=== PATIENT | male | born 1950 | race African-American/Black ===

== ENCOUNTER 2019-02-20 12:14 | Inpatient (IN) | payer MEDICARE, MEDICAID ==
[~2019-02-20] VITALS: Ht 182.9 cm; Wt 86.2 kg
[2019-02-20] MEDS ORDERED: IPRATROPIUM BROMIDE (0.02%) 0.5MG/2.5ML NEB HHN STA (12:41)
[2019-02-20] MEDS ORDERED: ALBUTEROL (0.083%) 2.5MG/3ML NEB HHN STA (12:41)
[2019-02-20] MEDS ORDERED: METHYLPREDNISOLONE SOD SUCC 125 MG/2 ML VIAL IV STA (12:41)
[2019-02-20] MEDS ORDERED: FUROSEMIDE 100MG/10ML VIAL IVP ONE (12:45)
[2019-02-20] MEDS ORDERED: ASPIRIN 81MG TABLET PO ONE (12:45)
[2019-02-20] MEDS ORDERED: VANCOMYCIN 1 G PREMIX 200 ML IV ONE (13:00)
[2019-02-20] MEDS ORDERED: PIPERACILLIN/TAZ 3.375G PREMIX 50 ML IV ONE (13:00)
[2019-02-20 13:20] LABS: HEMOGLOBIN. 11.4 g/dL (14.0-18.0); MEAN CORPUSCULAR HEMOGLOBIN 24.6 pg (28.0-32.0); MEAN CORPUSCULAR VOLUME 77.4 fL (80.0-94.0); MEAN PLATELET VOLUME 9.1 fl (7.4-10.4); PLATELET 82 x1000/uL (130-400); RED BLOOD CELL COUNT 4.65 mill/uL (4.7-6.1); RED CELL DISTRIBUTION WIDTH 18.7 % (11.6-14.6)
[2019-02-20 13:28] LABS: CHLORIDE 109 mEq/L (98-107)
[2019-02-20 13:45] LABS: INR 1.4; PROTHROMBIN TIME 14.1 sec (9.6-11.0)
[2019-02-20 14:03] LABS: PLATELET ESTIMATE SLIGHTLY DECREASED
[2019-02-20] MEDS ORDERED: GUAIFENESIN 200MG/10ML SUGAR FREE UDC PO PRN (14:30)
[2019-02-20] MEDS ORDERED: ONDANSETRON HCL 4MG/2ML INJ IV PRN (14:30)
[2019-02-20] MEDS ORDERED: CLONIDINE 0.1MG TABLET PO PRN (14:30)
[2019-02-20] MEDS ORDERED: DOCUSATE SODIUM 100MG CAPSULE PO PRN (14:30)
[2019-02-20] MEDS ORDERED: ENOXAPARIN 40MG/0.4ML SYR SUBCUT SCH (14:30)
[2019-02-20] MEDS ORDERED: ACETAMINOPHEN 325MG TABLET PO PRN (14:30)
[2019-02-20] MEDS ORDERED: HYDROCODONE/ACETAMINOPHEN 5/325MG TABLET PO PRN (14:30)
[2019-02-20] MEDS ORDERED: NA PHOS,M-B/NA PHOS,DI-BA ENEMA 118ML PR PRN (14:30)
[2019-02-20] MEDS ORDERED: IPRATROPIUM/ALBUTEROL 0.5-3(2.5)MG/3ML NEB INH PRN (14:30)
[2019-02-20 18:46] VITALS: BP 138/81
[2019-02-20 20:00] VITALS: BP 130/94
[2019-02-20] MEDS ORDERED: LEVOFLOXACIN 500MG PREMIX 100 ML IV SCH (21:00)
[2019-02-20] MEDS: METHYLPREDNISOLONE SOD SUCC 125 MG/2 ML VIAL IV SCH (22:56)
[2019-02-20] MEDS ORDERED: ASPI-1158 PO (23:25)
[2019-02-20] MEDS ORDERED: ACYC200C PO (23:25)
[2019-02-20] MEDS ORDERED: FURO-151 PO (23:25)
[2019-02-20] MEDS ORDERED: LISI10TA5 PO (23:25)
[2019-02-20] MEDS ORDERED: COR3 PO (23:25)
[2019-02-21] VITALS: BP 131/86
[2019-02-21 04:00] VITALS: BP_SYST 156; BP_SYST 177; BP_DIAS 116; BP_DIAS 89
[2019-02-21 04:02] LABS: CREATINE KINASE 375 IU/L (39-308)
[2019-02-21] MEDS: METHYLPREDNISOLONE SOD SUCC 125 MG/2 ML VIAL IV SCH ×4 (04:28→22:08)
[2019-02-21] MEDS: IPRATROPIUM/ALBUTEROL 0.5-3(2.5)MG/3ML NEB INH SCH ×4 (04:39→19:58)
[2019-02-21 08:00] VITALS: BP 173/110
[2019-02-21] MEDS ORDERED: FUROSEMIDE 40MG/4ML VIAL IV SCH (09:00)
[2019-02-21] MEDS: LISINOPRIL 10MG TABLET PO SCH (09:12)
[2019-02-21] MEDS ORDERED: AMLODIPINE 5MG TABLET PO ONE (10:45)
[2019-02-21 12:00] VITALS: BP 152/102
[2019-02-21 12:01] LABS: BASOPHILS % 0.2 % (0.0-2.0); EOSINOPHILS % 0.1 % (0.0-5.0); HEMATOCRIT. 37.5 % (42.0-52.0); HEMOGLOBIN. 11.8 g/dL (14.0-18.0); LYMPHOCYTES % 13.6 % (20.0-50.0); MEAN CORPUSCULAR HEMOGLOBIN 24.6 pg (28.0-32.0); MEAN PLATELET VOLUME 10.2 fl (7.4-10.4); MONOCYTES % 5.8 % (2.0-8.0); NEUTROPHILS % 80.3 % (40.0-76.0); PLATELET 98 x1000/uL (130-400); RED BLOOD CELL COUNT 4.81 mill/uL (4.7-6.1); RED CELL DISTRIBUTION WIDTH 19.3 % (11.6-14.6)
[2019-02-21 12:13] LABS: CHLORIDE 104 mEq/L (98-107)
[2019-02-21 12:22] LABS: LDL CHOLESTEROL 54 mg/dL (5-100)
[2019-02-21 12:23] LABS: CREATINE KINASE 386 IU/L (39-308)
[2019-02-21 12:24] LABS: HDL CHOLESTEROL 51 mg/dL (40-59)
[2019-02-21 16:00] VITALS: BP 138/98
[2019-02-21] MEDS ORDERED: AMLODIPINE 5MG TABLET PO NR (16:00)
[2019-02-21 20:00] VITALS: BP 144/106
[2019-02-21] MEDS: FUROSEMIDE 100MG/10ML VIAL IVP SCH (22:08)
[2019-02-21] MEDS: LEVOFLOXACIN 500MG PREMIX 100 ML IV SCH (22:08)
[2019-02-21] MEDS ORDERED: CLONIDINE 0.1MG TABLET PO PRN (22:15)
[2019-02-21] MEDS ORDERED: ACETAMINOPHEN 325MG TABLET PO PRN (22:15)
[2019-02-21] MEDS ORDERED: ONDANSETRON HCL 4MG/2ML INJ IV PRN (22:15)
[2019-02-21] MEDS ORDERED: IPRATROPIUM BROMIDE (0.02%) 0.5MG/2.5ML NEB HHN PRN (22:15)
[2019-02-22] VITALS (7 sets, daily range): BP systolic 130–161; BP diastolic 84–111
[2019-02-22] MEDS: IPRATROPIUM/ALBUTEROL 0.5-3(2.5)MG/3ML NEB INH SCH ×4 (01:58→21:30)
[2019-02-22] MEDS: METHYLPREDNISOLONE SOD SUCC 125 MG/2 ML VIAL IV SCH ×4 (04:53→21:09)
[2019-02-22 07:23] LABS: HEMATOCRIT. 37.9 % (42.0-52.0); HEMOGLOBIN. 11.9 g/dL (14.0-18.0); MEAN CORPUSCULAR HEMOGLOBIN 24.7 pg (28.0-32.0); MEAN CORPUSCULAR VOLUME 78.4 fL (80.0-94.0); PLATELET 104 x1000/uL (130-400); RED BLOOD CELL COUNT 4.84 mill/uL (4.7-6.1)
[2019-02-22 07:30] LABS: CHLORIDE 105 mEq/L (98-107)
[2019-02-22] MEDS ORDERED: BLOOD SUGAR DIAGNOSTIC STRIP TEST SCH (07:40)
[2019-02-22] MEDS ORDERED: INSULIN LISPRO 100 UNITS/ML SUBCUT SCH (08:10)
[2019-02-22] MEDS: LISINOPRIL 10MG TABLET PO SCH (09:02)
[2019-02-22] MEDS: AMLODIPINE 5MG TABLET PO SCH (09:02)
[2019-02-22] MEDS: FUROSEMIDE 100MG/10ML VIAL IVP SCH ×3 (09:02→21:10)
[2019-02-22] MEDS ORDERED: INSULIN GLARGINE UD 100 UNITS/ML SYR SUBCUT SCH (10:00)
[2019-02-22] MEDS: CARVEDILOL 3.125 MG TABLET PO SCH ×2 (15:15→21:10)
[2019-02-22 19:29] LABS: PLATELET ESTIMATE DECREASED
[2019-02-22] MEDS: LEVOFLOXACIN 500MG PREMIX 100 ML IV SCH (21:10)
[2019-02-23] VITALS: BP 152/81
[2019-02-23] MEDS: IPRATROPIUM/ALBUTEROL 0.5-3(2.5)MG/3ML NEB INH SCH ×3 (02:39→14:15)
[2019-02-23] MEDS: METHYLPREDNISOLONE SOD SUCC 125 MG/2 ML VIAL IV SCH ×3 (02:50→15:08)
[2019-02-23 04:00] VITALS: BP 151/95
[2019-02-23 07:41] LABS: HEMATOCRIT. 37.3 % (42.0-52.0); HEMOGLOBIN. 11.9 g/dL (14.0-18.0); MEAN CORPUSCULAR HEMOGLOBIN 24.8 pg (28.0-32.0); MEAN CORPUSCULAR VOLUME 77.7 fL (80.0-94.0); MEAN PLATELET VOLUME 10.1 fl (7.4-10.4); PLATELET 102 x1000/uL (130-400); RED BLOOD CELL COUNT 4.81 mill/uL (4.7-6.1); RED CELL DISTRIBUTION WIDTH 19.3 % (11.6-14.6)
[2019-02-23 07:50] LABS: CHLORIDE 102 mEq/L (98-107)
[2019-02-23 08:00] VITALS: BP 150/99
[2019-02-23] MEDS: LISINOPRIL 10MG TABLET PO SCH (08:27)
[2019-02-23] MEDS: CARVEDILOL 3.125 MG TABLET PO SCH (08:27)
[2019-02-23] MEDS: FUROSEMIDE 100MG/10ML VIAL IVP SCH (08:27)
[2019-02-23] MEDS: AMLODIPINE 5MG TABLET PO SCH (08:28)
[2019-02-23 11:06] VITALS: BP 143/95
[2019-02-23 11:24] LABS: PLATELET ESTIMATE SLIGHTLY DECREASED
[2019-02-23 12:00] VITALS: BP 143/95
[2019-02-23 16:00] VITALS: BP 134/87
[2019-02-23] MEDS ORDERED: EPOETIN ALFA 4000UNITS/ML VIAL SUBCUT SCH (21:00)
[2019-02-23] MEDS ORDERED: LEVOFLOXACIN 500MG TABLET PO SCH (21:00)
== END 2019-02-23 16:43 | disposition home or self-care (01) | DRG 291 ==
LOC: ER 12:14 → 7WST 13:45 → EDBEDREQ 13:48 → EDBEDREQTM 13:48 → SUPCPDRO 14:22 → ENRESERV 16:42
PROVIDERS: ADMIT Hospitalist; ATTEND Hospitalist
DX: I11.0 Hypertensive heart disease with heart failure (principal); J18.1 Lobar pneumonia, unspecified organism; J44.1 Chronic obstructive pulmonary disease with (acute) exacerbation; I48.1 Persistent atrial fibrillation; D68.59 Other primary thrombophilia; J44.0 Chronic obstructive pulmonary disease with (acute) lower respiratory infection; I50.33 Acute on chronic diastolic (congestive) heart failure; F17.210 Nicotine dependence, cigarettes, uncomplicated; E78.5 Hyperlipidemia, unspecified; E87.5 Hyperkalemia; I27.20 Pulmonary hypertension, unspecified; I27.81 Cor pulmonale (chronic); N45.1 Epididymitis; D69.6 Thrombocytopenia, unspecified; H54.7 Unspecified visual loss; I34.0 Nonrheumatic mitral (valve) insufficiency; I27.29 Other secondary pulmonary hypertension; Z86.73 Personal history of transient ischemic attack (TIA), and cerebral infarction without residual deficits; I25.2 Old myocardial infarction; Z79.01 Long term (current) use of anticoagulants; Z79.899 Other long term (current) drug therapy; Z71.6 Tobacco abuse counseling
CPT/HCPCS: 36415; 71045; 76870; 80048; 80061; 82550; 82962; 83605; 83880; 84484; 93005; 93306; 93970; 93976; 94640; 99285; C1893; J1940; J1956; J2543; J2930; J3370; J7050; J7620

== ENCOUNTER 2019-05-18 09:34 | Day surgery (SDC) | payer MEDICARE, MEDICAID ==
[~2019-05-18] VITALS: Ht 190.5 cm; Wt 82.1 kg
[~2019-05-18 09:34] MED LIST: ACYC200C PO; ASPI-1158 PO; COR3 PO; FURO-151 PO; LISI10TA5 PO
[2019-05-18] MEDS ORDERED: LIDOCAINE HCL 1% 20ML VIAL (Pyxis) INJ ONE (12:51)
[2019-05-18] MEDS ORDERED: IODIXANOL 320MG/ML 200ML BOTTLE ONE (12:51)
[2019-05-18] MEDS ORDERED: COR25 PO (12:56)
[2019-05-18] MEDS ORDERED: FENTANYL CITRATE/PF 50MCG/ML 2ML VIAL ONE (13:28)
[2019-05-18] MEDS ORDERED: MIDAZOLAM HCL 2 MG/2 ML VIAL ONE (13:28)
[2019-05-18] MEDS ORDERED: ONDANSETRON HCL 4MG/2ML INJ IV PRN (14:15)
[2019-05-18] MEDS ORDERED: ACETAMINOPHEN 325MG TABLET PO PRN (14:15)
[2019-05-18] MEDS ORDERED: ATROPINE SULFATE 1MG/10ML SYR IV PRN (14:15)
[2019-05-30] MEDS ORDERED: CEPH-569 MT (13:04)
== END 2019-05-18 19:00 | disposition home or self-care (01) ==
LOC: CCL 09:34
PROVIDERS: ATTEND Specialist
DX: I73.9 Peripheral vascular disease, unspecified (principal); I10 Essential (primary) hypertension; J44.9 Chronic obstructive pulmonary disease, unspecified; E78.5 Hyperlipidemia, unspecified; I25.2 Old myocardial infarction; Z79.01 Long term (current) use of anticoagulants; Z87.891 Personal history of nicotine dependence; Z79.82 Long term (current) use of aspirin; Z79.899 Other long term (current) drug therapy; Z86.73 Personal history of transient ischemic attack (TIA), and cerebral infarction without residual deficits
CPT/HCPCS: 36246; 75710; 99152; C1725; C1760; C1769; C1893; J1644; J2250; J3010; J3490; Q9967; G0500

== ENCOUNTER 2019-05-27 09:56 | Inpatient (IN) | payer MEDICARE, MEDICAID ==
[~2019-05-27] VITALS: Ht 190.5 cm; Wt 82.1 kg
[~2019-05-27 09:56] MED LIST changes: +COR25 PO; -COR3 PO
[2019-05-27 11:56] LABS: BASOPHILS % 1.1 % (0.0-2.0); EOSINOPHILS % 8.5 % (0.0-5.0); HEMATOCRIT. 41.3 % (42.0-52.0); LYMPHOCYTES % 19.4 % (20.0-50.0); MEAN PLATELET VOLUME 10.6 fl (7.4-10.4); MONOCYTES % 14.8 % (2.0-8.0); NEUTROPHILS % 56.2 % (40.0-76.0); PLATELET 178 x1000/uL (130-400); RED BLOOD CELL COUNT 5.23 mill/uL (4.7-6.1); RED CELL DISTRIBUTION WIDTH 20.6 % (11.6-14.6)
[2019-05-27 11:57] LABS: CHLORIDE 108 mEq/L (98-107)
[2019-05-27] MEDS ORDERED: CEFAZOLIN 1000MG PREMIX 50 ML IV ONE (13:15)
[2019-05-27] MEDS ORDERED: HYDROCODONE/ACETAMINOPHEN 5/325MG TABLET PO ONE (13:15)
[2019-05-27] MEDS ORDERED: SODIUM CHLORIDE 0.9% 1,000 ML IV ONE (13:30)
[2019-05-27] MEDS ORDERED: SODIUM POLYSTYRENE SULFONATE 15 G/60 ML BOT PO ONE (14:45)
[2019-05-27 15:39] VITALS: BP 174/111
[2019-05-27] MEDS: HYDROCODONE/ACETAMINOPHEN 5/325MG TABLET PO PRN (18:15)
[2019-05-27] MEDS ORDERED: ALBU6.7H9 INH (18:59)
[2019-05-27 20:00] VITALS: BP 141/88
[2019-05-27] MEDS ORDERED: ALBUTEROL 6.7GM HFA INHALER INH PRN (20:30)
[2019-05-27] MEDS: ALBUTEROL (0.083%) 2.5MG/3ML NEB HHN PRN (21:50)
[2019-05-27] MEDS: CARVEDILOL 12.5MG TABLET PO SCH (21:56)
[2019-05-27] MEDS: FUROSEMIDE 40MG TABLET PO SCH (21:57)
[2019-05-27] MEDS: ASPIRIN 81MG EC TABLET PO SCH (21:57)
[2019-05-27] MEDS: MORPHINE SULFATE 2 MG/ML CPJ (NOT FOR IM USE) IV PRN (21:57)
[2019-05-27] MEDS ORDERED: DIPHENHYDRAMINE 50MG/ML VIAL IV PRN (22:15)
[2019-05-27] MEDS: VANCOMYCIN 750 MG PREMIX 150 ML IV SCH (22:42)
[2019-05-28] VITALS: BP 144/91
[2019-05-28] MEDS: ALBUTEROL (0.083%) 2.5MG/3ML NEB HHN PRN ×3 (03:09→20:08)
[2019-05-28 04:00] VITALS: BP 121/87
[2019-05-28] MEDS: FUROSEMIDE 40MG TABLET PO SCH ×2 (06:46→17:15)
[2019-05-28 08:00] VITALS: BP 145/73
[2019-05-28] MEDS: CARVEDILOL 12.5MG TABLET PO SCH ×2 (09:00→20:48)
[2019-05-28] MEDS: VANCOMYCIN 750 MG PREMIX 150 ML IV SCH ×2 (09:53→20:49)
[2019-05-28] MEDS: ASPIRIN 81MG EC TABLET PO SCH (09:54)
[2019-05-28] MEDS: LISINOPRIL 10MG TABLET PO SCH (09:54)
[2019-05-28] MEDS: ENOXAPARIN 40MG/0.4ML SYR SUBCUT SCH (09:55)
[2019-05-28 12:00] VITALS: BP 143/85
[2019-05-28] MEDS: HYDROCODONE/ACETAMINOPHEN 5/325MG TABLET PO PRN ×2 (13:08→22:54)
[2019-05-28 16:00] VITALS: BP 126/67
[2019-05-28 20:00] VITALS: BP 148/97
[2019-05-28] MEDS: MORPHINE SULFATE 2 MG/ML CPJ (NOT FOR IM USE) IV PRN (20:48)
[2019-05-29] VITALS: BP 152/91
[2019-05-29 04:00] VITALS: BP 109/70
[2019-05-29] MEDS: FUROSEMIDE 40MG TABLET PO SCH ×2 (06:21→16:53)
[2019-05-29] MEDS: LISINOPRIL 10MG TABLET PO SCH (09:00)
[2019-05-29] MEDS: CARVEDILOL 3.125 MG TABLET PO SCH ×2 (09:15→21:00)
[2019-05-29] MEDS: ENOXAPARIN 40MG/0.4ML SYR SUBCUT SCH (10:05)
[2019-05-29] MEDS: ASPIRIN 81MG EC TABLET PO SCH (10:05)
[2019-05-29] MEDS: VANCOMYCIN 750 MG PREMIX 150 ML IV SCH ×2 (10:05→22:00)
[2019-05-29] MEDS: ALBUTEROL (0.083%) 2.5MG/3ML NEB HHN PRN ×2 (13:44→16:22)
[2019-05-29 20:00] VITALS: BP 131/87
[2019-05-29] MEDS: HYDROCODONE/ACETAMINOPHEN 5/325MG TABLET PO PRN (20:05)
[2019-05-29] MEDS: SODIUM HYPOCHLORITE 0.125% 473ML SOLUTION TOP SCH (23:42)
[2019-05-30] VITALS: BP 127/79
[2019-05-30] MEDS: HYDROCODONE/ACETAMINOPHEN 5/325MG TABLET PO PRN ×4 (00:15→21:59)
[2019-05-30 04:00] VITALS: BP 143/86
[2019-05-30] MEDS: FUROSEMIDE 40MG TABLET PO SCH ×2 (07:09→17:15)
[2019-05-30 08:00] VITALS: BP 126/93
[2019-05-30] MEDS: LISINOPRIL 10MG TABLET PO SCH (09:08)
[2019-05-30] MEDS: ENOXAPARIN 40MG/0.4ML SYR SUBCUT SCH (09:08)
[2019-05-30] MEDS: CARVEDILOL 3.125 MG TABLET PO SCH ×2 (09:09→22:00)
[2019-05-30] MEDS: SODIUM HYPOCHLORITE 0.125% 473ML SOLUTION TOP SCH ×2 (09:24→22:00)
[2019-05-30] MEDS: ASPIRIN 81MG EC TABLET PO SCH (09:25)
[2019-05-30] MEDS: VANCOMYCIN 750 MG PREMIX 150 ML IV SCH ×2 (10:00→22:00)
[2019-05-30] MEDS ORDERED: CEPH-569 MT (13:04)
[2019-05-30 16:00] VITALS: BP 145/94
[2019-05-30 20:00] VITALS: BP 133/87
[2019-05-31] VITALS: BP 149/99
[2019-05-31 04:00] VITALS: BP 126/90
[2019-05-31] MEDS: FUROSEMIDE 40MG TABLET PO SCH ×2 (07:15→17:15)
[2019-05-31 08:00] VITALS: BP 135/92
[2019-05-31] MEDS: LISINOPRIL 10MG TABLET PO SCH (09:00)
[2019-05-31] MEDS: CARVEDILOL 3.125 MG TABLET PO SCH ×2 (09:00→21:00)
[2019-05-31] MEDS: SODIUM HYPOCHLORITE 0.125% 473ML SOLUTION TOP SCH ×2 (09:00→22:46)
[2019-05-31] MEDS: ASPIRIN 81MG EC TABLET PO SCH (09:00)
[2019-05-31] MEDS: VANCOMYCIN 750 MG PREMIX 150 ML IV SCH ×2 (09:54→22:46)
[2019-05-31 12:00] VITALS: BP 145/89
[2019-05-31] MEDS ORDERED: SODIUM BICARBONATE 4% (2.4MEQ) 5ML VIAL IV ONE (13:44)
[2019-05-31] MEDS ORDERED: LIDOCAINE HCL 1% 20ML VIAL (Pyxis) INJ ONE (13:44)
[2019-05-31] MEDS: ALBUTEROL (0.083%) 2.5MG/3ML NEB HHN PRN (14:49)
[2019-05-31 16:00] VITALS: BP 165/114
[2019-05-31] MEDS: MORPHINE SULFATE 2 MG/ML CPJ (NOT FOR IM USE) IV PRN ×2 (17:33→21:53)
[2019-05-31 18:00] LABS: HEMATOCRIT. 38.9 % (42.0-52.0); HEMOGLOBIN. 12.2 g/dL (14.0-18.0); MEAN CORPUSCULAR HEMOGLOBIN 24.7 pg (28.0-32.0); MEAN CORPUSCULAR VOLUME 78.8 fL (80.0-94.0); MEAN PLATELET VOLUME 9.8 fl (7.4-10.4); PLATELET 110 x1000/uL (130-400); RED BLOOD CELL COUNT 4.94 mill/uL (4.7-6.1); RED CELL DISTRIBUTION WIDTH 20.1 % (11.6-14.6)
[2019-05-31] MEDS: DEXT 5%/0.45% NACL 1000ML 1,000 ML IV SCH (18:00)
[2019-05-31 18:07] LABS: CHLORIDE 106 mEq/L (98-107)
[2019-05-31 18:13] LABS: PLATELET ESTIMATE DECREASED
[2019-05-31 18:59] LABS: INR 1.4; PROTHROMBIN TIME 13.8 sec (9.6-11.0)
[2019-05-31 20:00] VITALS: BP 175/119
[2019-06-01] VITALS: BP 170/105
[2019-06-01 01:00] VITALS: BP 167/118
[2019-06-01] MEDS: MORPHINE SULFATE 2 MG/ML CPJ (NOT FOR IM USE) IV PRN (01:49)
[2019-06-01 04:00] VITALS: BP 168/114
[2019-06-01] MEDS: FUROSEMIDE 40MG TABLET PO SCH (07:02)
[2019-06-01] MEDS ORDERED: ZINC SULFATE 220 MG ( 50 ) CAPSULE PO SCH (09:00)
[2019-06-01] MEDS ORDERED: ASCORBIC ACID 250 MG TABLET PO SCH (09:00)
[2019-06-01] MEDS: ASPIRIN 81MG EC TABLET PO SCH (09:01)
[2019-06-01] MEDS: CARVEDILOL 3.125 MG TABLET PO SCH (09:03)
[2019-06-01] MEDS: LISINOPRIL 10MG TABLET PO SCH (09:03)
[2019-06-01] MEDS: DEXT 5%/0.45% NACL 1000ML 1,000 ML IV SCH (09:08)
[2019-06-01] MEDS: VANCOMYCIN 750 MG PREMIX 150 ML IV SCH (10:17)
[2019-06-01] MEDS: SODIUM HYPOCHLORITE 0.125% 473ML SOLUTION TOP SCH (10:23)
[2019-06-01 13:06] LABS: HEMATOCRIT. 36.1 % (42.0-52.0); HEMOGLOBIN. 11.4 g/dL (14.0-18.0); MEAN CORPUSCULAR HEMOGLOBIN 24.9 pg (28.0-32.0); MEAN CORPUSCULAR VOLUME 78.7 fL (80.0-94.0); MEAN PLATELET VOLUME 10.1 fl (7.4-10.4); PLATELET 101 x1000/uL (130-400); RED BLOOD CELL COUNT 4.59 mill/uL (4.7-6.1); RED CELL DISTRIBUTION WIDTH 19.9 % (11.6-14.6)
[2019-06-01 13:08] LABS: CHLORIDE 105 mEq/L (98-107)
[2019-06-01 13:28] VITALS: BP 167/96
[2019-06-01] MEDS ORDERED: IPRATROPIUM/ALBUTEROL 0.5-3(2.5)MG/3ML NEB HHN SCH (15:00)
[2019-06-01 19:34] LABS: PLATELET ESTIMATE DECREASED
[2019-06-01] MEDS ORDERED: VANCOMYCIN 1 G PREMIX 200 ML IV SCH (22:00)
== END 2019-06-01 15:30 | DRG 603 ==
LOC: ER 10:05 → 6EST 13:21 → EDBEDREQSVC 13:25 → EDBEDREQTM 13:25 → EDBEDREQ 13:25 → ENRESERV 13:50 → 6EST 16:05
PROVIDERS: ADMIT Family Medicine; ATTEND Family Medicine
PROC: 02HV33Z Insertion of Infusion Device into Superior Vena Cava, Percutaneous Approach (ICD-10-PCS; principal; 2019-05-31)
PROC: B5181ZA Fluoroscopy of Superior Vena Cava using Low Osmolar Contrast, Guidance (ICD-10-PCS; 2019-05-31)
PROC: B548ZZA Ultrasonography of Superior Vena Cava, Guidance (ICD-10-PCS; 2019-05-31)
DX: L03.115 Cellulitis of right lower limb (principal); L97.919 Non-pressure chronic ulcer of unspecified part of right lower leg with unspecified severity; I48.19 Other persistent atrial fibrillation; I13.0 Hypertensive heart and chronic kidney disease with heart failure and stage 1 through stage 4 chronic kidney disease, or unspecified chronic kidney disease; I50.9 Heart failure, unspecified; E87.5 Hyperkalemia; I25.10 Atherosclerotic heart disease of native coronary artery without angina pectoris; I87.8 Other specified disorders of veins; N18.9 Chronic kidney disease, unspecified; E78.5 Hyperlipidemia, unspecified; R74.0 Nonspecific elevation of levels of transaminase and lactic acid dehydrogenase [LDH]; I34.0 Nonrheumatic mitral (valve) insufficiency; F17.210 Nicotine dependence, cigarettes, uncomplicated; J44.9 Chronic obstructive pulmonary disease, unspecified; F14.90 Cocaine use, unspecified, uncomplicated; I27.20 Pulmonary hypertension, unspecified; I73.9 Peripheral vascular disease, unspecified; Z86.73 Personal history of transient ischemic attack (TIA), and cerebral infarction without residual deficits; Z82.49 Family history of ischemic heart disease and other diseases of the circulatory system; I25.2 Old myocardial infarction; Z79.01 Long term (current) use of anticoagulants; Z82.3 Family history of stroke; Z79.899 Other long term (current) drug therapy
CPT/HCPCS: 36415; 36573; 71045; 80048; 84484; 93005; 93971; 94640; 97162; 99285; C1725; C1893; J0690; J1200; J1650; J2270; J3370; J3490; J7030; J7611

== ENCOUNTER 2019-06-01 15:35 | Inpatient (IN) | payer MEDICARE, MEDICAID ==
[~2019-06-01] VITALS: Ht 188 cm; Wt 81.6 kg
[~2019-06-01 15:35] MED LIST changes: +ALBU6.7H9 INH; +CEPH-569 MT
[2019-06-01] MEDS ORDERED: ALBUTEROL (0.083%) 2.5MG/3ML NEB HHN PRN (16:30)
[2019-06-01] MEDS: ALBUTEROL (0.083%) 2.5MG/3ML NEB HHN PRN ×2 (16:37→21:41)
[2019-06-01] MEDS ORDERED: DIPHENHYDRAMINE 25MG CAPSULE PO PRN (16:45)
[2019-06-01 19:23] VITALS: BP 159/102
[2019-06-01 20:00] VITALS: BP 134/90
[2019-06-01] MEDS ORDERED: SODIUM HYPOCHLORITE 0.125% 473ML SOLUTION TOP SCH (21:00)
[2019-06-01] MEDS: FUROSEMIDE 40MG TABLET PO SCH ×2 (21:00→22:02)
[2019-06-01] MEDS: DEXT 5%/0.45% NACL 1000ML 1,000 ML IV SCH (21:49)
[2019-06-01] MEDS: CARVEDILOL 3.125 MG TABLET PO SCH (22:02)
[2019-06-01] MEDS: MORPHINE SULFATE 2 MG/ML CPJ (NOT FOR IM USE) IV PRN (22:02)
[2019-06-01] MEDS: VANCOMYCIN 1 G PREMIX 200 ML IV SCH (22:03)
[2019-06-01] MEDS: SODIUM HYPOCHLORITE 0.125% 473ML SOLUTION TOP SCH (23:43)
[2019-06-02] MEDS: HYDROCODONE/ACETAMINOPHEN 5/325MG TABLET PO PRN ×2 (01:01→20:13)
[2019-06-02 01:07] VITALS: BP 153/119
[2019-06-02] MEDS: ALBUTEROL (0.083%) 2.5MG/3ML NEB HHN PRN (01:21)
[2019-06-02 01:30] VITALS: BP 154/91
[2019-06-02] MEDS: DEXT 5%/0.45% NACL 1000ML 1,000 ML IV SCH (06:32)
[2019-06-02] MEDS: MORPHINE SULFATE 2 MG/ML CPJ (NOT FOR IM USE) IV PRN ×2 (06:32→17:16)
[2019-06-02 08:00] VITALS: BP 173/111
[2019-06-02] MEDS: ENOXAPARIN 40MG/0.4ML SYR SUBCUT SCH (09:00)
[2019-06-02] MEDS: ASPIRIN 81MG TABLET PO SCH (09:25)
[2019-06-02] MEDS: FUROSEMIDE 40MG TABLET PO SCH ×3 (09:25→20:15)
[2019-06-02] MEDS: AMLODIPINE 5MG TABLET PO SCH (09:25)
[2019-06-02] MEDS: CARVEDILOL 3.125 MG TABLET PO SCH ×2 (09:25→20:12)
[2019-06-02] MEDS: ZINC SULFATE 220 MG ( 50 ) CAPSULE PO SCH (09:26)
[2019-06-02] MEDS: ASCORBIC ACID 250 MG TABLET PO SCH (09:26)
[2019-06-02] MEDS: LISINOPRIL 10MG TABLET PO SCH (09:26)
[2019-06-02] MEDS: SODIUM HYPOCHLORITE 0.125% 473ML SOLUTION TOP SCH ×2 (09:27→21:00)
[2019-06-02] MEDS: IPRATROPIUM/ALBUTEROL 0.5-3(2.5)MG/3ML NEB HHN SCH ×3 (13:32→21:43)
[2019-06-02] MEDS: VANCOMYCIN 1 G PREMIX 200 ML IV SCH ×2 (14:10→21:25)
[2019-06-02 20:00] VITALS: BP 148/93
[2019-06-03] MEDS: IPRATROPIUM/ALBUTEROL 0.5-3(2.5)MG/3ML NEB HHN SCH ×7 (04:47→23:57)
[2019-06-03] MEDS: DEXT 5%/0.45% NACL 1000ML 1,000 ML IV SCH ×2 (06:06→21:14)
[2019-06-03 08:00] VITALS: BP 149/97
[2019-06-03] MEDS: CARVEDILOL 3.125 MG TABLET PO SCH ×2 (09:02→20:21)
[2019-06-03] MEDS: ZINC SULFATE 220 MG ( 50 ) CAPSULE PO SCH (09:02)
[2019-06-03] MEDS: HYDROCODONE/ACETAMINOPHEN 5/325MG TABLET PO PRN (09:02)
[2019-06-03] MEDS: AMLODIPINE 5MG TABLET PO SCH (09:02)
[2019-06-03] MEDS: ASPIRIN 81MG TABLET PO SCH (09:02)
[2019-06-03] MEDS: FUROSEMIDE 40MG TABLET PO SCH ×2 (09:03→20:20)
[2019-06-03] MEDS: ASCORBIC ACID 250 MG TABLET PO SCH (09:03)
[2019-06-03] MEDS: LISINOPRIL 10MG TABLET PO SCH ×2 (09:03→20:20)
[2019-06-03] MEDS: ENOXAPARIN 40MG/0.4ML SYR SUBCUT SCH (09:10)
[2019-06-03] MEDS: SODIUM HYPOCHLORITE 0.125% 473ML SOLUTION TOP SCH ×2 (09:10→20:23)
[2019-06-03] MEDS: VANCOMYCIN 1 G PREMIX 200 ML IV SCH ×2 (10:55→21:13)
[2019-06-03 12:33] LABS: HEMATOCRIT. 34.3 % (42.0-52.0); MEAN CORPUSCULAR VOLUME 78.4 fL (80.0-94.0); MEAN PLATELET VOLUME 10.1 fl (7.4-10.4); PLATELET 98 x1000/uL (130-400); RED BLOOD CELL COUNT 4.38 mill/uL (4.7-6.1); RED CELL DISTRIBUTION WIDTH 19.8 % (11.6-14.6)
[2019-06-03 12:40] LABS: CHLORIDE 105 mEq/L (98-107)
[2019-06-03 14:14] LABS: PLATELET ESTIMATE DECREASED
[2019-06-03] MEDS: MORPHINE SULFATE 2 MG/ML CPJ (NOT FOR IM USE) IV PRN (18:30)
[2019-06-03 20:00] VITALS: BP 153/90
[2019-06-04] MEDS: MORPHINE SULFATE 2 MG/ML CPJ (NOT FOR IM USE) IV PRN ×2 (00:18→17:37)
[2019-06-04] MEDS: IPRATROPIUM/ALBUTEROL 0.5-3(2.5)MG/3ML NEB HHN SCH ×5 (04:03→21:06)
[2019-06-04] MEDS: HYDROCODONE/ACETAMINOPHEN 5/325MG TABLET PO PRN ×2 (04:52→22:58)
[2019-06-04 08:06] VITALS: BP 139/95
[2019-06-04] MEDS: ZINC SULFATE 220 MG ( 50 ) CAPSULE PO SCH (08:55)
[2019-06-04] MEDS: ENOXAPARIN 40MG/0.4ML SYR SUBCUT SCH (08:55)
[2019-06-04] MEDS: AMLODIPINE 5MG TABLET PO SCH (08:55)
[2019-06-04] MEDS: ASPIRIN 81MG TABLET PO SCH (08:55)
[2019-06-04] MEDS: ASCORBIC ACID 250 MG TABLET PO SCH (08:56)
[2019-06-04] MEDS: CARVEDILOL 3.125 MG TABLET PO SCH ×2 (08:56→21:39)
[2019-06-04] MEDS: LISINOPRIL 10MG TABLET PO SCH ×2 (08:56→21:00)
[2019-06-04] MEDS: FUROSEMIDE 40MG TABLET PO SCH ×2 (08:56→21:00)
[2019-06-04] MEDS: DEXT 5%/0.45% NACL 1000ML 1,000 ML IV SCH (11:25)
[2019-06-04] MEDS: VANCOMYCIN 1 G PREMIX 200 ML IV SCH ×2 (13:21→21:39)
[2019-06-04] MEDS: SODIUM HYPOCHLORITE 0.125% 473ML SOLUTION TOP SCH ×2 (17:16→21:00)
[2019-06-04 20:00] VITALS: BP 143/89
[2019-06-05] MEDS: DEXT 5%/0.45% NACL 1000ML 1,000 ML IV SCH ×2 (00:45→13:10)
[2019-06-05] MEDS: IPRATROPIUM/ALBUTEROL 0.5-3(2.5)MG/3ML NEB HHN SCH ×6 (01:27→20:28)
[2019-06-05 07:51] VITALS: BP 149/89
[2019-06-05] MEDS: AMLODIPINE 5MG TABLET PO SCH ×2 (08:26→22:33)
[2019-06-05] MEDS: LISINOPRIL 10MG TABLET PO SCH ×2 (08:26→21:19)
[2019-06-05] MEDS: ZINC SULFATE 220 MG ( 50 ) CAPSULE PO SCH (08:26)
[2019-06-05] MEDS: CARVEDILOL 3.125 MG TABLET PO SCH ×2 (08:26→21:18)
[2019-06-05] MEDS: ENOXAPARIN 40MG/0.4ML SYR SUBCUT SCH (08:26)
[2019-06-05] MEDS: FUROSEMIDE 40MG TABLET PO SCH ×2 (08:26→21:00)
[2019-06-05] MEDS: ASPIRIN 81MG TABLET PO SCH (08:26)
[2019-06-05] MEDS: ASCORBIC ACID 250 MG TABLET PO SCH (08:26)
[2019-06-05] MEDS: SODIUM HYPOCHLORITE 0.125% 473ML SOLUTION TOP SCH ×2 (08:27→21:21)
[2019-06-05] MEDS: VANCOMYCIN 1 G PREMIX 200 ML IV SCH ×3 (10:09→23:53)
[2019-06-05] MEDS: ALBUTEROL (0.083%) 2.5MG/3ML NEB HHN PRN (18:34)
[2019-06-05 20:00] VITALS: BP 140/90
[2019-06-05] MEDS: HYDROCODONE/ACETAMINOPHEN 5/325MG TABLET PO PRN (21:15)
[2019-06-06] MEDS: MORPHINE SULFATE 2 MG/ML CPJ (NOT FOR IM USE) IV PRN ×2 (00:46→08:46)
[2019-06-06] MEDS: IPRATROPIUM/ALBUTEROL 0.5-3(2.5)MG/3ML NEB HHN SCH ×6 (02:54→19:51)
[2019-06-06] MEDS: DEXT 5%/0.45% NACL 1000ML 1,000 ML IV SCH ×2 (03:25→16:45)
[2019-06-06] MEDS: HYDROCODONE/ACETAMINOPHEN 5/325MG TABLET PO PRN ×2 (05:25→17:03)
[2019-06-06 07:00] LABS: HEMATOCRIT. 33.7 % (42.0-52.0); HEMOGLOBIN. 10.7 g/dL (14.0-18.0); MEAN CORPUSCULAR HEMOGLOBIN 24.7 pg (28.0-32.0); MEAN CORPUSCULAR VOLUME 77.8 fL (80.0-94.0); MEAN PLATELET VOLUME 10.1 fl (7.4-10.4); PLATELET 94 x1000/uL (130-400); RED BLOOD CELL COUNT 4.33 mill/uL (4.7-6.1); RED CELL DISTRIBUTION WIDTH 19.4 % (11.6-14.6)
[2019-06-06 07:06] LABS: CHLORIDE 102 mEq/L (98-107)
[2019-06-06 07:59] VITALS: BP 127/87
[2019-06-06] MEDS: CARVEDILOL 3.125 MG TABLET PO SCH ×2 (08:28→23:10)
[2019-06-06] MEDS: LISINOPRIL 10MG TABLET PO SCH ×2 (08:29→21:25)
[2019-06-06] MEDS: ASCORBIC ACID 250 MG TABLET PO SCH (08:29)
[2019-06-06] MEDS: ZINC SULFATE 220 MG ( 50 ) CAPSULE PO SCH (08:29)
[2019-06-06] MEDS: ASPIRIN 81MG TABLET PO SCH (08:29)
[2019-06-06] MEDS: AMLODIPINE 5MG TABLET PO SCH ×2 (08:29→21:24)
[2019-06-06] MEDS: FUROSEMIDE 40MG TABLET PO SCH ×2 (08:29→21:00)
[2019-06-06] MEDS: ENOXAPARIN 40MG/0.4ML SYR SUBCUT SCH (08:31)
[2019-06-06] MEDS: SODIUM HYPOCHLORITE 0.125% 473ML SOLUTION TOP SCH ×2 (08:37→21:00)
[2019-06-06] MEDS: VANCOMYCIN 1 G PREMIX 200 ML IV SCH ×2 (11:11→22:59)
[2019-06-06 13:01] LABS: PLATELET ESTIMATE DECREASED
[2019-06-06 20:00] VITALS: BP 120/78
[2019-06-07] MEDS: HYDROCODONE/ACETAMINOPHEN 5/325MG TABLET PO PRN ×2 (00:25→21:43)
[2019-06-07] MEDS: IPRATROPIUM/ALBUTEROL 0.5-3(2.5)MG/3ML NEB HHN SCH ×6 (00:44→20:50)
[2019-06-07] MEDS: DEXT 5%/0.45% NACL 1000ML 1,000 ML IV SCH ×3 (06:01→22:42)
[2019-06-07 08:13] VITALS: BP 116/83
[2019-06-07] MEDS: ENOXAPARIN 40MG/0.4ML SYR SUBCUT SCH (08:23)
[2019-06-07] MEDS: ASCORBIC ACID 250 MG TABLET PO SCH (08:24)
[2019-06-07] MEDS: ASPIRIN 81MG TABLET PO SCH (08:24)
[2019-06-07] MEDS: ZINC SULFATE 220 MG ( 50 ) CAPSULE PO SCH (08:24)
[2019-06-07] MEDS: LISINOPRIL 10MG TABLET PO SCH ×2 (08:24→20:57)
[2019-06-07] MEDS: CARVEDILOL 3.125 MG TABLET PO SCH ×3 (08:24→20:56)
[2019-06-07] MEDS: FUROSEMIDE 40MG TABLET PO SCH ×3 (08:24→21:00)
[2019-06-07] MEDS: AMLODIPINE 5MG TABLET PO SCH ×2 (08:25→20:54)
[2019-06-07] MEDS: SODIUM HYPOCHLORITE 0.125% 473ML SOLUTION TOP SCH ×2 (08:27→21:03)
[2019-06-07 11:15] LABS: HEMATOCRIT. 33.8 % (42.0-52.0); HEMOGLOBIN. 10.7 g/dL (14.0-18.0); MEAN CORPUSCULAR HEMOGLOBIN 24.8 pg (28.0-32.0); MEAN CORPUSCULAR VOLUME 78.7 fL (80.0-94.0); MEAN PLATELET VOLUME 9.5 fl (7.4-10.4); PLATELET 85 x1000/uL (130-400); RED CELL DISTRIBUTION WIDTH 19.7 % (11.6-14.6)
[2019-06-07 11:22] LABS: INR 1.3; PROTHROMBIN TIME 13.2 sec (9.6-11.0)
[2019-06-07 13:40] LABS: PLATELET ESTIMATE DECREASED
[2019-06-07] MEDS: DOXYCYCLINE HYCLATE 100MG CAPSULE PO SCH ×2 (14:00→21:09)
[2019-06-07 20:00] VITALS: BP 129/83
[2019-06-07] MEDS: AMOXICILLIN/POTASSIUM CLAVULANATE 875/125MG TAB PO SCH (20:57)
[2019-06-07] MEDS ORDERED: NON FORMULARY PATIENT HOME MED OP SCH (21:00)
[2019-06-07] MEDS ORDERED: BETAXOLOL 0.5% BOTHEYE SCH (21:00)
[2019-06-08] MEDS: IPRATROPIUM/ALBUTEROL 0.5-3(2.5)MG/3ML NEB HHN SCH ×3 (00:30→21:34)
[2019-06-08] MEDS: MORPHINE SULFATE 2 MG/ML CPJ (NOT FOR IM USE) IV PRN ×3 (03:35→20:12)
[2019-06-08] MEDS: ALBUTEROL (0.083%) 2.5MG/3ML NEB HHN PRN ×3 (06:03→17:07)
[2019-06-08 08:19] VITALS: BP 139/85
[2019-06-08] MEDS: AMOXICILLIN/POTASSIUM CLAVULANATE 875/125MG TAB PO SCH ×2 (08:49→20:15)
[2019-06-08] MEDS: FUROSEMIDE 40MG TABLET PO SCH ×2 (08:49→20:07)
[2019-06-08] MEDS: LISINOPRIL 10MG TABLET PO SCH ×2 (08:49→21:53)
[2019-06-08] MEDS: ZINC SULFATE 220 MG ( 50 ) CAPSULE PO SCH (08:49)
[2019-06-08] MEDS: AMLODIPINE 5MG TABLET PO SCH ×2 (08:49→21:54)
[2019-06-08] MEDS: ASPIRIN 81MG TABLET PO SCH (08:49)
[2019-06-08] MEDS: ENOXAPARIN 40MG/0.4ML SYR SUBCUT SCH (08:50)
[2019-06-08] MEDS: CARVEDILOL 3.125 MG TABLET PO SCH ×2 (08:50→21:54)
[2019-06-08] MEDS: ASCORBIC ACID 250 MG TABLET PO SCH (08:50)
[2019-06-08] MEDS: SODIUM HYPOCHLORITE 0.125% 473ML SOLUTION TOP SCH ×2 (08:58→20:07)
[2019-06-08] MEDS: DOXYCYCLINE HYCLATE 100MG CAPSULE PO SCH ×2 (09:48→20:15)
[2019-06-08 20:00] VITALS: BP 138/91
[2019-06-08] MEDS: DEXT 5%/0.45% NACL 1000ML 1,000 ML IV SCH (21:48)
[2019-06-08] MEDS: HYDROCODONE/ACETAMINOPHEN 5/325MG TABLET PO PRN (23:01)
[2019-06-09] MEDS: IPRATROPIUM/ALBUTEROL 0.5-3(2.5)MG/3ML NEB HHN SCH ×5 (01:19→17:15)
[2019-06-09] MEDS: HYDROCODONE/ACETAMINOPHEN 5/325MG TABLET PO PRN (05:15)
[2019-06-09 08:00] VITALS: BP 119/74
[2019-06-09] MEDS: AMOXICILLIN/POTASSIUM CLAVULANATE 875/125MG TAB PO SCH (09:08)
[2019-06-09] MEDS: DOXYCYCLINE HYCLATE 100MG CAPSULE PO SCH (09:08)
[2019-06-09] MEDS: ASCORBIC ACID 250 MG TABLET PO SCH (09:08)
[2019-06-09] MEDS: ZINC SULFATE 220 MG ( 50 ) CAPSULE PO SCH (09:09)
[2019-06-09] MEDS: LISINOPRIL 10MG TABLET PO SCH (09:09)
[2019-06-09] MEDS: ASPIRIN 81MG TABLET PO SCH (09:09)
[2019-06-09] MEDS: FUROSEMIDE 40MG TABLET PO SCH (09:10)
[2019-06-09] MEDS: AMLODIPINE 5MG TABLET PO SCH (09:10)
[2019-06-09] MEDS: CARVEDILOL 3.125 MG TABLET PO SCH (09:10)
[2019-06-09] MEDS: ENOXAPARIN 40MG/0.4ML SYR SUBCUT SCH (09:11)
[2019-06-09] MEDS: MORPHINE SULFATE 2 MG/ML CPJ (NOT FOR IM USE) IV PRN (09:26)
[2019-06-09] MEDS: SODIUM HYPOCHLORITE 0.125% 473ML SOLUTION TOP SCH (10:47)
[2019-06-09 10:49] LABS: HEMATOCRIT. 33.5 % (42.0-52.0); HEMOGLOBIN. 10.7 g/dL (14.0-18.0); MEAN CORPUSCULAR HEMOGLOBIN 24.9 pg (28.0-32.0); MEAN CORPUSCULAR VOLUME 78.1 fL (80.0-94.0); MEAN PLATELET VOLUME 9.9 fl (7.4-10.4); PLATELET 80 x1000/uL (130-400); RED BLOOD CELL COUNT 4.29 mill/uL (4.7-6.1); RED CELL DISTRIBUTION WIDTH 19.4 % (11.6-14.6)
[2019-06-09 10:58] LABS: CHLORIDE 102 mEq/L (98-107)
[2019-06-09 12:05] LABS: PLATELET ESTIMATE DECREASED
[2019-06-09 12:40] VITALS: BP 119/74
== END 2019-06-09 18:05 | disposition home health service (06) | DRG 603 ==
PROVIDERS: ADMIT Psychiatry & Neurology Neurology; ATTEND Family Medicine
DX: L03.115 Cellulitis of right lower limb (principal); I48.19 Other persistent atrial fibrillation; L97.919 Non-pressure chronic ulcer of unspecified part of right lower leg with unspecified severity; I69.354 Hemiplegia and hemiparesis following cerebral infarction affecting left non-dominant side; R53.81 Other malaise; E87.5 Hyperkalemia; E78.5 Hyperlipidemia, unspecified; I25.10 Atherosclerotic heart disease of native coronary artery without angina pectoris; I27.20 Pulmonary hypertension, unspecified; I73.9 Peripheral vascular disease, unspecified; J44.9 Chronic obstructive pulmonary disease, unspecified; D69.6 Thrombocytopenia, unspecified; F41.9 Anxiety disorder, unspecified; I34.0 Nonrheumatic mitral (valve) insufficiency; I12.9 Hypertensive chronic kidney disease with stage 1 through stage 4 chronic kidney disease, or unspecified chronic kidney disease; N18.9 Chronic kidney disease, unspecified; I25.2 Old myocardial infarction; Z79.899 Other long term (current) drug therapy; Z79.01 Long term (current) use of anticoagulants; Z87.891 Personal history of nicotine dependence
CPT/HCPCS: 36415; 80048; 80202; 92523; 92610; 93970; 94640; 97110; 97112; 97116; 97162; 97166; 97530; 97535; J1650; J2270; J3370; J7040; J7611; J7620

== ENCOUNTER 2019-06-15 08:42 | Inpatient (IN) | payer MEDICARE, MEDICAID ==
[~2019-06-15] VITALS: Ht 190.5 cm; Wt 88.7 kg
[2019-06-15] MEDS ORDERED: LIDOCAINE HCL 1% 20ML VIAL (Pyxis) INJ ONE ×2 (10:24→11:20)
[2019-06-15] MEDS ORDERED: IOHEXOL-300 100 ML BOTTLE ONE (10:24)
[2019-06-15] MEDS ORDERED: IODIXANOL 320MG/ML 100 ML BOTTLE IV ONE (10:24)
[2019-06-15] MEDS ORDERED: FENTANYL CITRATE/PF 50MCG/ML 2ML VIAL ONE (11:00)
[2019-06-15] MEDS ORDERED: MIDAZOLAM HCL 2 MG/2 ML VIAL ONE (11:00)
[2019-06-15] MEDS ORDERED: HEPARIN SODIUM 1,000 UNIT/1ML VIAL IV ONE (12:00)
[2019-06-15] MEDS ORDERED: PROTAMINE SULFATE 10MG/ML VIAL 5ML IV ONE (12:14)
[2019-06-15] MEDS ORDERED: ATROPINE SULFATE 1MG/10ML SYR IV PRN (12:30)
[2019-06-15] MEDS ORDERED: ONDANSETRON HCL 4MG/2ML INJ IV PRN (12:30)
[2019-06-15] MEDS ORDERED: ACETAMINOPHEN 325MG TABLET PO PRN (12:30)
[2019-06-15 13:02] VITALS: BP 139/59
[2019-06-15 15:57] VITALS: BP 138/81
[2019-06-15] MEDS: ASPIRIN 325MG TABLET PO SCH (18:57)
[2019-06-15] MEDS: IPRATROPIUM/ALBUTEROL 0.5-3(2.5)MG/3ML NEB HHN SCH ×2 (19:55→23:54)
[2019-06-15 20:00] VITALS: BP 139/96
[2019-06-15 22:00] VITALS: BP 144/98
[2019-06-16] VITALS (7 sets, daily range): BP systolic 123–145; BP diastolic 65–89
[2019-06-16] MEDS ORDERED: HYDROCODONE/ACETAMINOPHEN 5/325MG TABLET PO PRN (04:45)
[2019-06-16] MEDS: ASPIRIN 325MG TABLET PO SCH (08:39)
[2019-06-16] MEDS: IPRATROPIUM/ALBUTEROL 0.5-3(2.5)MG/3ML NEB HHN SCH (08:50)
== END 2019-06-16 13:28 | disposition home health service (06) | DRG 300 ==
LOC: CCL 08:42 → 3WST 08:43
PROVIDERS: ADMIT Specialist; ATTEND Specialist
PROC: B41FYZZ Fluoroscopy of Right Lower Extremity Arteries using Other Contrast (ICD-10-PCS; principal; 2019-06-16)
DX: I70.201 Unspecified atherosclerosis of native arteries of extremities, right leg (principal); L03.115 Cellulitis of right lower limb; I48.19 Other persistent atrial fibrillation; I73.9 Peripheral vascular disease, unspecified; D69.6 Thrombocytopenia, unspecified; I25.10 Atherosclerotic heart disease of native coronary artery without angina pectoris; I11.9 Hypertensive heart disease without heart failure; I27.20 Pulmonary hypertension, unspecified; I87.2 Venous insufficiency (chronic) (peripheral); I34.0 Nonrheumatic mitral (valve) insufficiency; J44.9 Chronic obstructive pulmonary disease, unspecified; H54.7 Unspecified visual loss; Z79.01 Long term (current) use of anticoagulants; Z86.73 Personal history of transient ischemic attack (TIA), and cerebral infarction without residual deficits; Z82.3 Family history of stroke; Z82.49 Family history of ischemic heart disease and other diseases of the circulatory system; Z87.891 Personal history of nicotine dependence; Z79.899 Other long term (current) drug therapy
CPT/HCPCS: 36245; 75710; 94640; C1760; C1769; C1887; C1893; J1644; J2250; J2720; J3010; J3490; J7620; Q9967

== ENCOUNTER 2020-01-17 05:21 | Inpatient (IN) | payer MEDICARE, MEDICAID ==
[~2020-01-17] VITALS: Ht 190.5 cm; Wt 76.7 kg
[2020-01-17 06:30] LABS: HEMATOCRIT. 42.4 % (42.0-52.0); HEMOGLOBIN. 13.4 g/dL (14.0-18.0); MEAN CORPUSCULAR HEMOGLOBIN 23.7 pg (28.0-32.0); MEAN PLATELET VOLUME 9.1 fl (7.4-10.4); PLATELET 129 x1000/uL (130-400); RED BLOOD CELL COUNT 5.66 mill/uL (4.7-6.1); RED CELL DISTRIBUTION WIDTH 17.6 % (11.6-14.6)
[2020-01-17 06:34] LABS: CHLORIDE 108 mEq/L (98-107)
[2020-01-17 06:36] LABS: INR 1.2; PROTHROMBIN TIME 12.5 sec (9.6-11.0)
[2020-01-17 07:32] LABS: PLATELET ESTIMATE SLIGHTLY DECREASED
[2020-01-17] MEDS ORDERED: LEVOFLOXACIN 750MG PREMIX 150 ML IV ONE (07:45)
[2020-01-17] MEDS ORDERED: HYDRALAZINE 20MG/ML VIAL IV ONE (08:00)
[2020-01-17 08:27] LABS: CLARITY URINE CLEAR (CLEAR); COLOR URINE YELLOW (YELLOW); KETONES URINE NEGATIVE (NEGATIVE); LEUKOCYTE ESTERASE URINE NEGATIVE (NEGATIVE); NITRITE URINE NEGATIVE (NEGATIVE); OCCULT BLOOD URINE NEGATIVE (NEGATIVE); PROTEIN URINE 1+ (NEGATIVE); SPECIFIC GRAVITY URINE 1.022 (1.005-1.030)
[2020-01-17] MEDS ORDERED: METOCLOPRAMIDE HCL 10MG/2ML VIAL IV ONE (09:00)
[2020-01-17] MEDS ORDERED: KETOROLAC 30MG/ML VIAL IV ONE (09:00)
[2020-01-17] MEDS ORDERED: NITROGLYCERIN 0.4MG TABLET SL SL PRN (10:45)
[2020-01-17] MEDS ORDERED: MAGNESIUM/ALUMINUM HYDROXIDE/SIMETHICONE 30ML UDC PO PRN (10:45)
[2020-01-17] MEDS ORDERED: GUAIFENESIN 200MG/10ML SUGAR FREE UDC PO PRN (10:45)
[2020-01-17] MEDS ORDERED: DOCUSATE SODIUM 100MG CAPSULE PO PRN (10:45)
[2020-01-17] MEDS ORDERED: TRAMADOL 50MG TABLET PO PRN (10:45)
[2020-01-17] MEDS ORDERED: CLONIDINE 0.1MG TABLET PO PRN (10:45)
[2020-01-17] MEDS ORDERED: ACETAMINOPHEN 325MG TABLET PO PRN ×2 (10:45)
[2020-01-17] MEDS ORDERED: ONDANSETRON HCL 4MG/2ML INJ IV PRN (10:45)
[2020-01-17 10:59] LABS: *AMPHETAMINES SCREEN URINE NEGATIVE (NEGATIVE); *BARBITURATES SCREEN URINE NEGATIVE (NEGATIVE); *BENZODIAZEPINES SCREEN URINE NEGATIVE (NEGATIVE); *COCAINE SCREEN URINE NEGATIVE (NEGATIVE)
[2020-01-17 11:00] LABS: CANNABINOID URINE SCREEN NEGATIVE (NEGATIVE); METHADONE URINE SCREEN NEGATIVE (NEGATIVE); OPIATES URINE SCREEN NEGATIVE (NEGATIVE); PHENCYCLIDINE URINE SCREEN NEGATIVE (NEGATIVE)
[2020-01-17 11:16] LABS: T4 FREE 1.08 ng/dL (0.76-1.46)
[2020-01-17 11:25] LABS: FOLIC ACID (FOLATE) SERUM 16.9 ng/mL (>5.38)
[2020-01-17] MEDS: ENOXAPARIN 40MG/0.4ML SYR SUBCUT SCH (11:52)
[2020-01-17] MEDS: LISINOPRIL 5MG TABLET PO SCH ×2 (12:03→22:17)
[2020-01-17 14:46] LABS: CREATINE KINASE MB FRACTION 6.5 ng/mL (0.5-3.6)
[2020-01-17] MEDS: CARVEDILOL 3.125 MG TABLET PO SCH (17:41)
[2020-01-17] MEDS ORDERED: FAMOTIDINE 20MG TABLET PO SCH (21:00)
[2020-01-17] MEDS: FUROSEMIDE 40MG/4ML VIAL IVP SCH ×2 (21:00→22:17)
[2020-01-17 21:50] VITALS: BP 145/104
[2020-01-17] MEDS: ASCORBIC ACID 500 MG TABLET PO SCH (22:17)
[2020-01-17] MEDS: ZOLPIDEM TARTRATE 5MG TABLET PO PRN (22:17)
[2020-01-17 23:49] LABS: CREATINE KINASE MB FRACTION 9.1 ng/mL (0.5-3.6)
[2020-01-17 23:59] VITALS: BP 173/108
[2020-01-18] MEDS: IPRATROPIUM/ALBUTEROL 0.5-3(2.5)MG/3ML NEB NEB PRN (04:12)
[2020-01-18 04:47] VITALS: BP 175/90
[2020-01-18] MEDS: CARVEDILOL 3.125 MG TABLET PO SCH ×2 (05:15→18:00)
[2020-01-18 05:59] LABS: CHLORIDE 110 mEq/L (98-107)
[2020-01-18 06:04] LABS: PHOSPHORUS 2.5 mg/dL (2.5-4.9)
[2020-01-18 06:39] LABS: HEMATOCRIT. 39.1 % (42.0-52.0); HEMOGLOBIN. 12.6 g/dL (14.0-18.0); MEAN CORPUSCULAR HEMOGLOBIN 23.8 pg (28.0-32.0); MEAN CORPUSCULAR VOLUME 74.1 fL (80.0-94.0); MEAN PLATELET VOLUME 9.4 fl (7.4-10.4); PLATELET 116 x1000/uL (130-400); RED BLOOD CELL COUNT 5.27 mill/uL (4.7-6.1); RED CELL DISTRIBUTION WIDTH 17.7 % (11.6-14.6)
[2020-01-18 08:00] VITALS: BP 129/78
[2020-01-18] MEDS: FUROSEMIDE 40MG/4ML VIAL IVP SCH ×2 (08:56→21:26)
[2020-01-18] MEDS: ASCORBIC ACID 500 MG TABLET PO SCH ×2 (08:57→21:27)
[2020-01-18] MEDS: LISINOPRIL 5MG TABLET PO SCH ×2 (08:57→21:27)
[2020-01-18] MEDS: ZINC SULFATE 220 MG ( 50 ) CAPSULE PO SCH (08:57)
[2020-01-18] MEDS: FAMOTIDINE 20MG TABLET PO SCH (08:57)
[2020-01-18] MEDS: ASPIRIN 325MG EC TABLET PO SCH (09:00)
[2020-01-18] MEDS: ENOXAPARIN 40MG/0.4ML SYR SUBCUT SCH (09:00)
[2020-01-18 12:00] VITALS: BP 130/74
[2020-01-18 14:49] LABS: PLATELET ESTIMATE SLIGHTLY DECREASED
[2020-01-18 16:00] VITALS: BP 92/75
[2020-01-18 16:11] LABS: T4 FREE 1.25 ng/dL (0.76-1.46)
[2020-01-18 20:18] VITALS: BP 127/78
[2020-01-19 00:20] VITALS: BP 121/70
[2020-01-19] MEDS: IPRATROPIUM/ALBUTEROL 0.5-3(2.5)MG/3ML NEB NEB PRN (01:28)
[2020-01-19 04:22] VITALS: BP 158/84
[2020-01-19 06:11] LABS: CHLORIDE 106 mEq/L (98-107)
[2020-01-19] MEDS: CARVEDILOL 3.125 MG TABLET PO SCH ×2 (06:15→17:29)
[2020-01-19 06:24] LABS: PHOSPHORUS 3.2 mg/dL (2.5-4.9)
[2020-01-19 06:26] LABS: HEMATOCRIT. 42.4 % (42.0-52.0); HEMOGLOBIN. 13.4 g/dL (14.0-18.0); MEAN CORPUSCULAR HEMOGLOBIN 23.6 pg (28.0-32.0); MEAN CORPUSCULAR VOLUME 74.9 fL (80.0-94.0); MEAN PLATELET VOLUME 9.3 fl (7.4-10.4); PLATELET 127 x1000/uL (130-400); RED BLOOD CELL COUNT 5.67 mill/uL (4.7-6.1); RED CELL DISTRIBUTION WIDTH 17.6 % (11.6-14.6)
[2020-01-19 08:00] VITALS: BP 129/62
[2020-01-19] MEDS: ASCORBIC ACID 500 MG TABLET PO SCH ×2 (08:38→21:53)
[2020-01-19] MEDS: ENOXAPARIN 40MG/0.4ML SYR SUBCUT SCH (08:38)
[2020-01-19] MEDS: LISINOPRIL 5MG TABLET PO SCH ×2 (08:39→21:00)
[2020-01-19] MEDS: ZINC SULFATE 220 MG ( 50 ) CAPSULE PO SCH (08:39)
[2020-01-19] MEDS: FUROSEMIDE 40MG/4ML VIAL IVP SCH ×2 (08:39→21:53)
[2020-01-19] MEDS: ASPIRIN 325MG EC TABLET PO SCH (08:39)
[2020-01-19] MEDS: FAMOTIDINE 20MG TABLET PO SCH (08:39)
[2020-01-19 11:50] LABS: ATYPICAL LYMPHOCYTES 3
[2020-01-19 11:51] LABS: PLATELET ESTIMATE SLIGHTLY DECREASED
[2020-01-19 12:00] VITALS: BP 129/80
[2020-01-19 16:00] VITALS: BP 128/81
[2020-01-19] MEDS: APIXABAN 5 MG TABLET PO SCH (17:30)
[2020-01-19] MEDS: ZOLPIDEM TARTRATE 5MG TABLET PO PRN (21:54)
[2020-01-20] MEDS: CARVEDILOL 3.125 MG TABLET PO SCH ×2 (06:00→17:20)
[2020-01-20 07:28] LABS: HEMATOCRIT. 45.7 % (42.0-52.0); HEMOGLOBIN. 14.7 g/dL (14.0-18.0); MEAN CORPUSCULAR HEMOGLOBIN 23.7 pg (28.0-32.0); MEAN CORPUSCULAR VOLUME 73.8 fL (80.0-94.0); MEAN PLATELET VOLUME 9.4 fl (7.4-10.4); PLATELET 163 x1000/uL (130-400); RED CELL DISTRIBUTION WIDTH 17.5 % (11.6-14.6)
[2020-01-20 07:37] LABS: CHLORIDE 102 mEq/L (98-107)
[2020-01-20 08:12] VITALS: BP 103/74
[2020-01-20] MEDS: APIXABAN 5 MG TABLET PO SCH ×2 (09:22→17:19)
[2020-01-20] MEDS: FAMOTIDINE 20MG TABLET PO SCH (09:22)
[2020-01-20] MEDS: ASCORBIC ACID 500 MG TABLET PO SCH ×2 (09:22→20:40)
[2020-01-20] MEDS: FUROSEMIDE 40MG/4ML VIAL IVP SCH ×2 (09:22→20:40)
[2020-01-20] MEDS: LISINOPRIL 5MG TABLET PO SCH ×2 (09:23→20:40)
[2020-01-20] MEDS: ZINC SULFATE 220 MG ( 50 ) CAPSULE PO SCH (09:40)
[2020-01-20 10:23] LABS: PLATELET ESTIMATE NORMAL
[2020-01-20] MEDS: IPRATROPIUM/ALBUTEROL 0.5-3(2.5)MG/3ML NEB NEB PRN (10:40)
[2020-01-20 12:10] VITALS: BP 99/69
[2020-01-20 16:38] VITALS: BP 94/54
[2020-01-20 20:00] VITALS: BP 108/71
[2020-01-21] VITALS: BP 94/64
[2020-01-21 04:00] VITALS: BP 106/73
[2020-01-21] MEDS: CARVEDILOL 3.125 MG TABLET PO SCH ×2 (05:03→18:00)
[2020-01-21 06:33] LABS: CREATINE KINASE 749 IU/L (39-308)
[2020-01-21 08:00] VITALS: BP 98/58
[2020-01-21] MEDS: LISINOPRIL 5MG TABLET PO SCH (09:29)
[2020-01-21] MEDS: APIXABAN 5 MG TABLET PO SCH ×2 (09:32→16:48)
[2020-01-21] MEDS: ZINC SULFATE 220 MG ( 50 ) CAPSULE PO SCH (09:32)
[2020-01-21] MEDS: FAMOTIDINE 20MG TABLET PO SCH (09:32)
[2020-01-21] MEDS: ASCORBIC ACID 500 MG TABLET PO SCH ×2 (09:32→20:30)
[2020-01-21 12:00] VITALS: BP 94/62
[2020-01-21 16:00] VITALS: BP 110/70
[2020-01-21 20:00] VITALS: BP 106/73
[2020-01-22] VITALS: BP 136/81
[2020-01-22 04:00] VITALS: BP 141/88
[2020-01-22 04:43] LABS: HEMATOCRIT. 46.6 % (42.0-52.0); MEAN CORPUSCULAR VOLUME 74.5 fL (80.0-94.0); PLATELET 169 x1000/uL (130-400); RED BLOOD CELL COUNT 6.26 mill/uL (4.7-6.1); RED CELL DISTRIBUTION WIDTH 17.4 % (11.6-14.6)
[2020-01-22 04:50] LABS: CHLORIDE 101 mEq/L (98-107)
[2020-01-22] MEDS: CARVEDILOL 3.125 MG TABLET PO SCH (05:46)
[2020-01-22 08:00] VITALS: BP 125/79
[2020-01-22] MEDS: APIXABAN 5 MG TABLET PO SCH ×2 (09:10→17:14)
[2020-01-22] MEDS: ZINC SULFATE 220 MG ( 50 ) CAPSULE PO SCH (09:10)
[2020-01-22] MEDS: FAMOTIDINE 20MG TABLET PO SCH (09:12)
[2020-01-22] MEDS: ASCORBIC ACID 500 MG TABLET PO SCH (09:12)
[2020-01-22] MEDS: LISINOPRIL 5MG TABLET PO SCH (09:12)
[2020-01-22] MEDS ORDERED: FUROSEMIDE 40MG TABLET PO SCH (11:00)
[2020-01-22 11:11] LABS: PLATELET ESTIMATE NORMAL
[2020-01-22 12:00] VITALS: BP 101/66
[2020-01-22 16:16] VITALS: BP 103/66
[2020-01-22] MEDS ORDERED: CARVEDILOL 3.125 MG TABLET PO SCH (18:00)
== END 2020-01-22 17:47 | DRG 64 ==
LOC: ER 05:21 → CANRESERV 08:09 → ENRESERV 08:09 → CANRESERV 08:11 → ENRESERV 08:11 → EDBEDREQSVC 08:42 → EDBEDREQTM 08:57 → EDBEDREQ 08:57 → SUPCPDRO 10:37 → 6WST 21:31
PROVIDERS: ADMIT Internal Medicine; ATTEND Internal Medicine
DX: I63.9 Cerebral infarction, unspecified (principal); G92 Toxic encephalopathy; G82.50 Quadriplegia, unspecified; J18.9 Pneumonia, unspecified organism; N17.0 Acute kidney failure with tubular necrosis; I16.1 Hypertensive emergency; I47.2 Ventricular tachycardia; M62.82 Rhabdomyolysis; I48.19 Other persistent atrial fibrillation; I50.40 Unspecified combined systolic (congestive) and diastolic (congestive) heart failure; G81.94 Hemiplegia, unspecified affecting left nondominant side; D63.8 Anemia in other chronic diseases classified elsewhere; D69.6 Thrombocytopenia, unspecified; E86.0 Dehydration; I11.0 Hypertensive heart disease with heart failure; I25.10 Atherosclerotic heart disease of native coronary artery without angina pectoris; I27.20 Pulmonary hypertension, unspecified; I49.3 Ventricular premature depolarization; I08.1 Rheumatic disorders of both mitral and tricuspid valves; I65.21 Occlusion and stenosis of right carotid artery; I70.201 Unspecified atherosclerosis of native arteries of extremities, right leg; R13.10 Dysphagia, unspecified; R47.01 Aphasia; Z79.01 Long term (current) use of anticoagulants; Z79.899 Other long term (current) drug therapy; Z82.3 Family history of stroke; I25.2 Old myocardial infarction; Z82.49 Family history of ischemic heart disease and other diseases of the circulatory system; Z86.73 Personal history of transient ischemic attack (TIA), and cerebral infarction without residual deficits; Z87.891 Personal history of nicotine dependence; Z91.14 Patient's other noncompliance with medication regimen; Z91.81 History of falling; Z79.82 Long term (current) use of aspirin
CPT/HCPCS: 36415; 70496; 70498; 70544; 70551; 71045; 80048; 80053; 80061; 80305; 81003; 82550; 82553; 82607; 82746; 83036; 83540; 83550; 83605; 83735; 83880; 84100; 84145; 84439; 84443; 84481; 84484; 85025; 92523; 92610; 93005; 93306; 93880; 93970; 97116; 97162; 97166; 97530; 97535; 99285; J0360; J1650; J1885; J1940; J1956; J2765

== ENCOUNTER 2020-01-22 18:45 | Inpatient (IN) | payer MEDICARE, MEDICAID ==
[~2020-01-22] VITALS: Ht 190.5 cm; Wt 83.9 kg
[2020-01-22] MEDS ORDERED: ONDANSETRON HCL 4MG/2ML INJ IV PRN (19:00)
[2020-01-22] MEDS ORDERED: ACETAMINOPHEN 325MG TABLET PO PRN (19:00)
[2020-01-22] MEDS ORDERED: MAGNESIUM/ALUMINUM HYDROXIDE/SIMETHICONE 30ML UDC PO PRN (19:00)
[2020-01-22] MEDS ORDERED: GUAIFENESIN 200MG/10ML SUGAR FREE UDC PO PRN (19:00)
[2020-01-22] MEDS ORDERED: NITROGLYCERIN 0.4MG TABLET SL SL PRN (19:00)
[2020-01-22 20:00] VITALS: BP 106/76
[2020-01-22 21:00] VITALS: BP 108/66
[2020-01-22] MEDS: CARVEDILOL 3.125 MG TABLET PO SCH (21:00)
[2020-01-22] MEDS: ASCORBIC ACID 500 MG TABLET PO SCH (22:29)
[2020-01-23] MEDS: IPRATROPIUM/ALBUTEROL 0.5-3(2.5)MG/3ML NEB HHN SCH ×5 (02:04→21:40)
[2020-01-23 06:07] LABS: CHLORIDE 102 mEq/L (98-107)
[2020-01-23 06:11] LABS: HEMATOCRIT. 47.1 % (42.0-52.0); HEMOGLOBIN. 14.9 g/dL (14.0-18.0); MEAN CORPUSCULAR HEMOGLOBIN 23.6 pg (28.0-32.0); MEAN CORPUSCULAR VOLUME 74.5 fL (80.0-94.0); PLATELET 163 x1000/uL (130-400); RED BLOOD CELL COUNT 6.32 mill/uL (4.7-6.1); RED CELL DISTRIBUTION WIDTH 17.2 % (11.6-14.6)
[2020-01-23 08:35] VITALS: BP_SYST 109; BP_SYST 112; BP_DIAS 109; BP_DIAS 80
[2020-01-23] MEDS: LISINOPRIL 5MG TABLET PO SCH (09:00)
[2020-01-23] MEDS: CARVEDILOL 3.125 MG TABLET PO SCH ×2 (09:00→21:00)
[2020-01-23] MEDS: APIXABAN 5 MG TABLET PO SCH ×2 (09:10→17:14)
[2020-01-23] MEDS: FAMOTIDINE 20MG TABLET PO SCH (09:10)
[2020-01-23] MEDS: FUROSEMIDE 40MG TABLET PO SCH (09:11)
[2020-01-23] MEDS: ZINC SULFATE 220 MG ( 50 ) CAPSULE PO SCH (09:11)
[2020-01-23] MEDS: ASCORBIC ACID 500 MG TABLET PO SCH ×2 (09:11→21:18)
[2020-01-23] MEDS: LACTULOSE 20G/30ML UDC PO SCH ×2 (12:00→12:14)
[2020-01-23 16:03] LABS: PLATELET ESTIMATE NORMAL
[2020-01-23 20:00] VITALS: BP 123/72
[2020-01-24] MEDS: IPRATROPIUM/ALBUTEROL 0.5-3(2.5)MG/3ML NEB HHN SCH ×8 (01:49→23:20)
[2020-01-24] MEDS: LISINOPRIL 5MG TABLET PO SCH (09:00)
[2020-01-24] MEDS: FUROSEMIDE 40MG TABLET PO SCH ×2 (09:00→09:06)
[2020-01-24] MEDS: CARVEDILOL 3.125 MG TABLET PO SCH ×2 (09:00→21:31)
[2020-01-24] MEDS: APIXABAN 5 MG TABLET PO SCH ×2 (09:06→16:29)
[2020-01-24] MEDS: ZINC SULFATE 220 MG ( 50 ) CAPSULE PO SCH (09:06)
[2020-01-24] MEDS: ASCORBIC ACID 500 MG TABLET PO SCH ×2 (09:07→21:28)
[2020-01-24 09:12] VITALS: BP 121/87
[2020-01-24] MEDS: FAMOTIDINE 20MG TABLET PO SCH (12:33)
[2020-01-24 20:00] VITALS: BP 117/80
[2020-01-25] MEDS: IPRATROPIUM/ALBUTEROL 0.5-3(2.5)MG/3ML NEB HHN SCH ×5 (04:06→19:20)
[2020-01-25 07:51] VITALS: BP 124/86
[2020-01-25] MEDS: FUROSEMIDE 40MG TABLET PO SCH (08:33)
[2020-01-25] MEDS: CARVEDILOL 3.125 MG TABLET PO SCH ×2 (08:34→21:00)
[2020-01-25] MEDS: FAMOTIDINE 20MG TABLET PO SCH (08:34)
[2020-01-25] MEDS: ASCORBIC ACID 500 MG TABLET PO SCH ×2 (08:34→21:16)
[2020-01-25] MEDS: APIXABAN 5 MG TABLET PO SCH ×2 (08:34→16:20)
[2020-01-25] MEDS: LISINOPRIL 5MG TABLET PO SCH (08:34)
[2020-01-25] MEDS: ZINC SULFATE 220 MG ( 50 ) CAPSULE PO SCH (08:34)
[2020-01-25 08:44] LABS: PHOSPHORUS 2.9 mg/dL (2.5-4.9)
[2020-01-25 20:00] VITALS: BP 114/82
[2020-01-26] MEDS: IPRATROPIUM/ALBUTEROL 0.5-3(2.5)MG/3ML NEB HHN SCH ×6 (00:37→21:17)
[2020-01-26 06:23] VITALS: BP 111/72
[2020-01-26 07:35] LABS: BASOPHILS % 0.9 % (0.0-2.0); EOSINOPHILS % 7.9 % (0.0-5.0); HEMOGLOBIN. 14.6 g/dL (14.0-18.0); LYMPHOCYTES % 33.1 % (20.0-50.0); MEAN CORPUSCULAR HEMOGLOBIN 24.1 pg (28.0-32.0); MEAN CORPUSCULAR VOLUME 75.6 fL (80.0-94.0); MEAN PLATELET VOLUME 8.8 fl (7.4-10.4); MONOCYTES % 13.8 % (2.0-8.0); NEUTROPHILS % 44.3 % (40.0-76.0); PLATELET 134 x1000/uL (130-400); RED BLOOD CELL COUNT 6.08 mill/uL (4.7-6.1); RED CELL DISTRIBUTION WIDTH 17.5 % (11.6-14.6)
[2020-01-26 07:37] VITALS: BP 108/78
[2020-01-26 07:43] LABS: CHLORIDE 104 mEq/L (98-107)
[2020-01-26] MEDS: CARVEDILOL 3.125 MG TABLET PO SCH ×2 (09:00→20:25)
[2020-01-26] MEDS: LISINOPRIL 5MG TABLET PO SCH (09:00)
[2020-01-26] MEDS: FUROSEMIDE 40MG TABLET PO SCH ×2 (09:00→09:51)
[2020-01-26] MEDS: APIXABAN 5 MG TABLET PO SCH ×2 (09:51→17:54)
[2020-01-26] MEDS: ASCORBIC ACID 500 MG TABLET PO SCH ×2 (09:51→20:25)
[2020-01-26] MEDS: ZINC SULFATE 220 MG ( 50 ) CAPSULE PO SCH (09:51)
[2020-01-26] MEDS: FAMOTIDINE 20MG TABLET PO SCH (09:51)
[2020-01-26 20:00] VITALS: BP 122/84
[2020-01-27] MEDS: IPRATROPIUM/ALBUTEROL 0.5-3(2.5)MG/3ML NEB HHN SCH ×6 (00:50→20:12)
[2020-01-27 08:20] VITALS: BP 130/69
[2020-01-27] MEDS: FAMOTIDINE 20MG TABLET PO SCH ×2 (09:00→09:31)
[2020-01-27] MEDS: ZINC SULFATE 220 MG ( 50 ) CAPSULE PO SCH ×2 (09:00→09:31)
[2020-01-27] MEDS: FUROSEMIDE 40MG TABLET PO SCH ×2 (09:00→09:31)
[2020-01-27] MEDS: ASCORBIC ACID 500 MG TABLET PO SCH ×3 (09:00→20:09)
[2020-01-27] MEDS: LISINOPRIL 5MG TABLET PO SCH (09:31)
[2020-01-27] MEDS: APIXABAN 5 MG TABLET PO SCH ×2 (09:31→17:45)
[2020-01-27] MEDS: CARVEDILOL 3.125 MG TABLET PO SCH ×2 (09:32→20:08)
[2020-01-27 20:00] VITALS: BP 124/84
[2020-01-28] MEDS: IPRATROPIUM/ALBUTEROL 0.5-3(2.5)MG/3ML NEB HHN SCH ×6 (00:10→20:43)
[2020-01-28 07:55] VITALS: BP 124/74
[2020-01-28] MEDS: ASCORBIC ACID 500 MG TABLET PO SCH ×3 (08:36→21:58)
[2020-01-28] MEDS: FAMOTIDINE 20MG TABLET PO SCH ×2 (08:36→08:50)
[2020-01-28] MEDS: APIXABAN 5 MG TABLET PO SCH ×2 (08:36→16:36)
[2020-01-28] MEDS: DOCUSATE SODIUM 100MG CAPSULE PO PRN ×2 (08:36→08:51)
[2020-01-28] MEDS: CARVEDILOL 3.125 MG TABLET PO SCH ×2 (08:37→21:00)
[2020-01-28] MEDS: FUROSEMIDE 40MG TABLET PO SCH (08:37)
[2020-01-28] MEDS: LISINOPRIL 5MG TABLET PO SCH (08:37)
[2020-01-28] MEDS: ZINC SULFATE 220 MG ( 50 ) CAPSULE PO SCH ×2 (08:38→08:50)
[2020-01-28 20:00] VITALS: BP 107/64
[2020-01-29] MEDS: IPRATROPIUM/ALBUTEROL 0.5-3(2.5)MG/3ML NEB HHN SCH ×6 (00:26→20:24)
[2020-01-29 08:03] VITALS: BP 128/90
[2020-01-29] MEDS: FUROSEMIDE 40MG TABLET PO SCH (08:15)
[2020-01-29] MEDS: APIXABAN 5 MG TABLET PO SCH ×2 (08:16→16:28)
[2020-01-29] MEDS: FAMOTIDINE 20MG TABLET PO SCH (08:16)
[2020-01-29] MEDS: ASCORBIC ACID 500 MG TABLET PO SCH ×2 (08:17→20:55)
[2020-01-29] MEDS: LISINOPRIL 5MG TABLET PO SCH (08:17)
[2020-01-29] MEDS: ZINC SULFATE 220 MG ( 50 ) CAPSULE PO SCH (08:17)
[2020-01-29] MEDS: CARVEDILOL 3.125 MG TABLET PO SCH ×2 (08:18→20:55)
[2020-01-29 20:00] VITALS: BP 108/67
[2020-01-30] MEDS: IPRATROPIUM/ALBUTEROL 0.5-3(2.5)MG/3ML NEB HHN SCH ×5 (00:09→22:31)
[2020-01-30 05:09] LABS: 25-HYDROXY VITAMIN D3 17 ng/mL (.)
[2020-01-30 06:49] LABS: BASOPHILS % 2.2 % (0.0-2.0); EOSINOPHILS % 13.3 % (0.0-5.0); HEMATOCRIT. 45.3 % (42.0-52.0); HEMOGLOBIN. 14.3 g/dL (14.0-18.0); LYMPHOCYTES % 29.1 % (20.0-50.0); MEAN CORPUSCULAR HEMOGLOBIN 23.9 pg (28.0-32.0); MEAN CORPUSCULAR VOLUME 75.8 fL (80.0-94.0); MEAN PLATELET VOLUME 9.4 fl (7.4-10.4); MONOCYTES % 13.8 % (2.0-8.0); NEUTROPHILS % 41.6 % (40.0-76.0); PLATELET 125 x1000/uL (130-400); RED BLOOD CELL COUNT 5.98 mill/uL (4.7-6.1); RED CELL DISTRIBUTION WIDTH 17.5 % (11.6-14.6)
[2020-01-30 07:17] LABS: CHLORIDE 103 mEq/L (98-107)
[2020-01-30 08:00] VITALS: BP 110/72
[2020-01-30] MEDS: CARVEDILOL 3.125 MG TABLET PO SCH ×3 (09:00→21:55)
[2020-01-30] MEDS: APIXABAN 5 MG TABLET PO SCH ×2 (09:40→17:16)
[2020-01-30] MEDS: DOCUSATE SODIUM 100MG CAPSULE PO PRN ×2 (09:40→09:52)
[2020-01-30] MEDS: ZINC SULFATE 220 MG ( 50 ) CAPSULE PO SCH (09:40)
[2020-01-30] MEDS: ASCORBIC ACID 500 MG TABLET PO SCH ×2 (09:43→21:55)
[2020-01-30] MEDS: FUROSEMIDE 40MG TABLET PO SCH ×2 (09:43→09:56)
[2020-01-30] MEDS: FAMOTIDINE 20MG TABLET PO SCH ×3 (09:43→09:51)
[2020-01-30] MEDS: LISINOPRIL 5MG TABLET PO SCH (09:44)
[2020-01-30] MEDS: ERGOCALCIFEROL 50000UNITS CAPSULE PO SCH (17:16)
[2020-01-30 20:00] VITALS: BP 119/70
[2020-01-31] MEDS: IPRATROPIUM/ALBUTEROL 0.5-3(2.5)MG/3ML NEB HHN SCH ×6 (01:58→20:01)
[2020-01-31 08:13] VITALS: BP 125/78
[2020-01-31] MEDS: CARVEDILOL 3.125 MG TABLET PO SCH ×2 (08:23→20:51)
[2020-01-31] MEDS: ASCORBIC ACID 500 MG TABLET PO SCH ×2 (08:23→20:50)
[2020-01-31] MEDS: APIXABAN 5 MG TABLET PO SCH ×2 (08:23→16:43)
[2020-01-31] MEDS: ZINC SULFATE 220 MG ( 50 ) CAPSULE PO SCH (08:23)
[2020-01-31] MEDS: LISINOPRIL 5MG TABLET PO SCH (08:23)
[2020-01-31 20:00] VITALS: BP 120/71
[2020-02-01] MEDS: IPRATROPIUM/ALBUTEROL 0.5-3(2.5)MG/3ML NEB HHN SCH ×5 (01:23→21:50)
[2020-02-01 07:10] LABS: BASOPHILS % 1.4 % (0.0-2.0); EOSINOPHILS % 12.8 % (0.0-5.0); HEMATOCRIT. 43.5 % (42.0-52.0); LYMPHOCYTES % 31.5 % (20.0-50.0); MEAN CORPUSCULAR HEMOGLOBIN 24.2 pg (28.0-32.0); MEAN CORPUSCULAR VOLUME 75.2 fL (80.0-94.0); MEAN PLATELET VOLUME 9.9 fl (7.4-10.4); MONOCYTES % 12.8 % (2.0-8.0); NEUTROPHILS % 41.5 % (40.0-76.0); PLATELET 118 x1000/uL (130-400); RED BLOOD CELL COUNT 5.78 mill/uL (4.7-6.1); RED CELL DISTRIBUTION WIDTH 17.6 % (11.6-14.6)
[2020-02-01 07:16] LABS: CHLORIDE 107 mEq/L (98-107)
[2020-02-01 08:03] VITALS: BP 120/78
[2020-02-01] MEDS: ZINC SULFATE 220 MG ( 50 ) CAPSULE PO SCH (08:52)
[2020-02-01] MEDS: FUROSEMIDE 40MG TABLET PO SCH (08:52)
[2020-02-01] MEDS: ASCORBIC ACID 500 MG TABLET PO SCH ×2 (08:52→21:32)
[2020-02-01] MEDS: FAMOTIDINE 20MG TABLET PO SCH (08:52)
[2020-02-01] MEDS: LISINOPRIL 5MG TABLET PO SCH (08:53)
[2020-02-01] MEDS: CARVEDILOL 3.125 MG TABLET PO SCH ×2 (08:53→21:00)
[2020-02-01] MEDS: APIXABAN 5 MG TABLET PO SCH ×2 (10:58→17:24)
[2020-02-01 20:00] VITALS: BP 114/85
[2020-02-02] MEDS: IPRATROPIUM/ALBUTEROL 0.5-3(2.5)MG/3ML NEB HHN SCH ×6 (00:29→21:20)
[2020-02-02 08:00] VITALS: BP 141/81
[2020-02-02] MEDS: FAMOTIDINE 20MG TABLET PO SCH (08:34)
[2020-02-02] MEDS: APIXABAN 5 MG TABLET PO SCH ×2 (08:34→16:33)
[2020-02-02] MEDS: LISINOPRIL 5MG TABLET PO SCH (08:34)
[2020-02-02] MEDS: ASCORBIC ACID 500 MG TABLET PO SCH ×2 (08:34→21:14)
[2020-02-02] MEDS: ZINC SULFATE 220 MG ( 50 ) CAPSULE PO SCH (08:34)
[2020-02-02] MEDS: DOCUSATE SODIUM 100MG CAPSULE PO PRN (08:34)
[2020-02-02] MEDS: CARVEDILOL 3.125 MG TABLET PO SCH ×2 (08:34→21:14)
[2020-02-02] MEDS: FUROSEMIDE 40MG TABLET PO SCH (08:45)
[2020-02-02] MEDS ORDERED: NA PHOS,M-B/NA PHOS,DI-BA ENEMA 118ML PR SCH (15:00)
[2020-02-02 20:00] VITALS: BP 152/56
[2020-02-03] MEDS: IPRATROPIUM/ALBUTEROL 0.5-3(2.5)MG/3ML NEB HHN SCH ×6 (00:35→20:08)
[2020-02-03 07:01] LABS: CHLORIDE 105 mEq/L (98-107)
[2020-02-03 08:00] VITALS: BP 140/86
[2020-02-03] MEDS: CARVEDILOL 3.125 MG TABLET PO SCH ×2 (09:00→21:50)
[2020-02-03 09:36] LABS: BASOPHILS % 1.2 % (0.0-2.0); EOSINOPHILS % 11.1 % (0.0-5.0); MEAN CORPUSCULAR HEMOGLOBIN 23.9 pg (28.0-32.0); MEAN PLATELET VOLUME 9.7 fl (7.4-10.4); MONOCYTES % 11.9 % (2.0-8.0); NEUTROPHILS % 44.8 % (40.0-76.0); PLATELET 123 x1000/uL (130-400); RED BLOOD CELL COUNT 5.87 mill/uL (4.7-6.1); RED CELL DISTRIBUTION WIDTH 17.6 % (11.6-14.6)
[2020-02-03] MEDS: ASCORBIC ACID 500 MG TABLET PO SCH ×2 (09:42→21:50)
[2020-02-03] MEDS: FAMOTIDINE 20MG TABLET PO SCH (09:42)
[2020-02-03] MEDS: APIXABAN 5 MG TABLET PO SCH ×2 (09:42→16:17)
[2020-02-03] MEDS: ZINC SULFATE 220 MG ( 50 ) CAPSULE PO SCH (09:43)
[2020-02-03] MEDS: FUROSEMIDE 40MG TABLET PO SCH (09:43)
[2020-02-03] MEDS: LISINOPRIL 5MG TABLET PO SCH (09:43)
[2020-02-03 20:00] VITALS: BP 105/72
[2020-02-04] MEDS: IPRATROPIUM/ALBUTEROL 0.5-3(2.5)MG/3ML NEB HHN SCH ×6 (00:15→20:07)
[2020-02-04 08:18] VITALS: BP 119/75
[2020-02-04] MEDS: FAMOTIDINE 20MG TABLET PO SCH (09:00)
[2020-02-04] MEDS: ZINC SULFATE 220 MG ( 50 ) CAPSULE PO SCH (09:00)
[2020-02-04] MEDS: ASCORBIC ACID 500 MG TABLET PO SCH ×2 (09:00→21:34)
[2020-02-04] MEDS: APIXABAN 5 MG TABLET PO SCH ×2 (09:00→17:00)
[2020-02-04] MEDS: FUROSEMIDE 40MG TABLET PO SCH (09:00)
[2020-02-04] MEDS: CARVEDILOL 3.125 MG TABLET PO SCH ×2 (09:24→21:00)
[2020-02-04] MEDS: LISINOPRIL 5MG TABLET PO SCH (09:25)
[2020-02-04 20:00] VITALS: BP 133/73
[2020-02-05] MEDS: IPRATROPIUM/ALBUTEROL 0.5-3(2.5)MG/3ML NEB HHN SCH ×6 (00:13→20:22)
[2020-02-05 06:21] LABS: EOSINOPHILS % 13.6 % (0.0-5.0); HEMATOCRIT. 46.8 % (42.0-52.0); LYMPHOCYTES % 32.1 % (20.0-50.0); MEAN CORPUSCULAR HEMOGLOBIN 24.2 pg (28.0-32.0); MEAN CORPUSCULAR VOLUME 75.4 fL (80.0-94.0); MEAN PLATELET VOLUME 9.2 fl (7.4-10.4); MONOCYTES % 12.9 % (2.0-8.0); NEUTROPHILS % 40.4 % (40.0-76.0); PLATELET 131 x1000/uL (130-400); RED CELL DISTRIBUTION WIDTH 17.9 % (11.6-14.6)
[2020-02-05 06:55] LABS: CHLORIDE 105 mEq/L (98-107)
[2020-02-05 08:00] VITALS: BP 116/68
[2020-02-05] MEDS: CARVEDILOL 3.125 MG TABLET PO SCH ×3 (09:00→21:00)
[2020-02-05] MEDS: FUROSEMIDE 40MG TABLET PO SCH (09:51)
[2020-02-05] MEDS: ZINC SULFATE 220 MG ( 50 ) CAPSULE PO SCH (09:51)
[2020-02-05] MEDS: ASCORBIC ACID 500 MG TABLET PO SCH ×2 (09:51→21:39)
[2020-02-05] MEDS: DOCUSATE SODIUM 100MG CAPSULE PO PRN (09:51)
[2020-02-05] MEDS: LISINOPRIL 5MG TABLET PO SCH (09:52)
[2020-02-05] MEDS: APIXABAN 5 MG TABLET PO SCH ×2 (09:52→16:52)
[2020-02-05] MEDS: FAMOTIDINE 20MG TABLET PO SCH (09:56)
[2020-02-05 13:38] LABS: BG BASE EXCESS 1.4 mmol/L (-2.0-2.0); BG CARBOXYHEMOGLOBIN 0.8 % (0.5-1.5); BG DEOXYHEMOGLOBIN 1.5 % (0.0-5.0); BG FRACTION INSPIRED OXYGEN 28; BG HCO3 ACT 26.1 mmol/L (22.0-26.0); BG METHEMOGLOBIN 0.3 % (0.0-1.5); BG OXYGEN SATURATION 98.5 % (92.0-98.5); BG OXYHEMOGLOBIN 97.4 % (94.0-97.0); BG PCO2 41.6 mmHg (35.0-45.0); BG PH 7.415 (7.350-7.450); BG PO2 109.7 mmHg (75.0-100.0); BG SAMPLE SITE RIGHT BRACHIAL; BG TOTAL HEMOGLOBIN 15.1 g/dL (12.0-18.0); BG VENT MODE NASAL CANNULA
[2020-02-05 16:31] LABS: BG BASE EXCESS 1.6 mmol/L (-2.0-2.0); BG CARBOXYHEMOGLOBIN 0.6 % (0.5-1.5); BG DEOXYHEMOGLOBIN 2.9 % (0.0-5.0); BG FRACTION INSPIRED OXYGEN 21; BG HCO3 ACT 25.9 mmol/L (22.0-26.0); BG METHEMOGLOBIN 0.2 % (0.0-1.5); BG OXYGEN SATURATION 97.1 % (92.0-98.5); BG OXYHEMOGLOBIN 96.3 % (94.0-97.0); BG PCO2 39.8 mmHg (35.0-45.0); BG PH 7.432 (7.350-7.450); BG PO2 85.3 mmHg (75.0-100.0); BG SAMPLE SITE RIGHT BRACHIAL; BG TOTAL HEMOGLOBIN 15.2 g/dL (12.0-18.0); BG VENT MODE ROOM AIR
[2020-02-05 20:00] VITALS: BP 123/78
[2020-02-06] MEDS: IPRATROPIUM/ALBUTEROL 0.5-3(2.5)MG/3ML NEB HHN SCH ×6 (01:24→22:07)
[2020-02-06 08:00] VITALS: BP 110/75
[2020-02-06] MEDS: CARVEDILOL 3.125 MG TABLET PO SCH ×2 (09:00→21:00)
[2020-02-06] MEDS: FAMOTIDINE 20MG TABLET PO SCH ×2 (09:22→09:39)
[2020-02-06] MEDS: DOCUSATE SODIUM 100MG CAPSULE PO PRN (09:22)
[2020-02-06] MEDS: ASCORBIC ACID 500 MG TABLET PO SCH ×2 (09:22→22:06)
[2020-02-06] MEDS: ERGOCALCIFEROL 50000UNITS CAPSULE PO SCH (09:22)
[2020-02-06] MEDS: ZINC SULFATE 220 MG ( 50 ) CAPSULE PO SCH (09:23)
[2020-02-06] MEDS: APIXABAN 5 MG TABLET PO SCH ×2 (09:23→09:37)
[2020-02-06] MEDS: FUROSEMIDE 40MG TABLET PO SCH ×2 (09:23→09:38)
[2020-02-06] MEDS: LISINOPRIL 5MG TABLET PO SCH (09:25)
[2020-02-06 20:00] VITALS: BP 110/78
[2020-02-07] MEDS: IPRATROPIUM/ALBUTEROL 0.5-3(2.5)MG/3ML NEB HHN SCH ×6 (03:44→15:45)
[2020-02-07 06:39] LABS: CHLORIDE 107 mEq/L (98-107)
[2020-02-07 06:43] LABS: EOSINOPHILS % 14.6 % (0.0-5.0); HEMATOCRIT. 45.8 % (42.0-52.0); HEMOGLOBIN. 14.8 g/dL (14.0-18.0); MEAN CORPUSCULAR HEMOGLOBIN 24.5 pg (28.0-32.0); MEAN CORPUSCULAR VOLUME 75.9 fL (80.0-94.0); MEAN PLATELET VOLUME 9.2 fl (7.4-10.4); MONOCYTES % 12.3 % (2.0-8.0); NEUTROPHILS % 44.1 % (40.0-76.0); PLATELET 72 x1000/uL (130-400); RED BLOOD CELL COUNT 6.04 mill/uL (4.7-6.1); RED CELL DISTRIBUTION WIDTH 17.9 % (11.6-14.6)
[2020-02-07 07:59] VITALS: BP 132/82
[2020-02-07 08:03] VITALS: BP 132/82
[2020-02-07] MEDS: FUROSEMIDE 40MG TABLET PO SCH (08:55)
[2020-02-07] MEDS: CARVEDILOL 3.125 MG TABLET PO SCH ×2 (08:55→20:13)
[2020-02-07] MEDS: ASCORBIC ACID 500 MG TABLET PO SCH ×2 (08:57→20:14)
[2020-02-07] MEDS: FAMOTIDINE 20MG TABLET PO SCH (08:57)
[2020-02-07] MEDS: APIXABAN 5 MG TABLET PO SCH ×2 (08:57→16:07)
[2020-02-07] MEDS: ZINC SULFATE 220 MG ( 50 ) CAPSULE PO SCH (08:57)
[2020-02-07] MEDS: LISINOPRIL 5MG TABLET PO SCH (08:57)
[2020-02-07 20:00] VITALS: BP 93/60
[2020-02-08] MEDS: IPRATROPIUM/ALBUTEROL 0.5-3(2.5)MG/3ML NEB HHN SCH ×5 (01:31→21:36)
[2020-02-08 07:45] LABS: BASOPHILS % 1.2 % (0.0-2.0); EOSINOPHILS % 13.8 % (0.0-5.0); HEMATOCRIT. 44.9 % (42.0-52.0); HEMOGLOBIN. 14.4 g/dL (14.0-18.0); LYMPHOCYTES % 33.1 % (20.0-50.0); MEAN CORPUSCULAR HEMOGLOBIN 24.2 pg (28.0-32.0); MEAN CORPUSCULAR VOLUME 75.3 fL (80.0-94.0); MEAN PLATELET VOLUME 9.2 fl (7.4-10.4); NEUTROPHILS % 39.9 % (40.0-76.0); PLATELET 110 x1000/uL (130-400); RED BLOOD CELL COUNT 5.97 mill/uL (4.7-6.1); RED CELL DISTRIBUTION WIDTH 17.8 % (11.6-14.6)
[2020-02-08 08:00] VITALS: BP 131/88
[2020-02-08] MEDS: FAMOTIDINE 20MG TABLET PO SCH (09:00)
[2020-02-08] MEDS: CARVEDILOL 3.125 MG TABLET PO SCH ×2 (09:00→21:00)
[2020-02-08] MEDS: ZINC SULFATE 220 MG ( 50 ) CAPSULE PO SCH (09:02)
[2020-02-08] MEDS: ASCORBIC ACID 500 MG TABLET PO SCH ×2 (09:02→21:16)
[2020-02-08] MEDS: APIXABAN 5 MG TABLET PO SCH ×2 (09:02→17:21)
[2020-02-08] MEDS: FUROSEMIDE 40MG TABLET PO SCH ×2 (09:02→10:26)
[2020-02-08] MEDS: LISINOPRIL 5MG TABLET PO SCH (09:03)
[2020-02-08 20:00] VITALS: BP 104/69
[2020-02-09] MEDS: IPRATROPIUM/ALBUTEROL 0.5-3(2.5)MG/3ML NEB HHN SCH ×3 (01:04→09:45)
[2020-02-09] MEDS ORDERED: FAMO20TA8 PO (06:32)
[2020-02-09] MEDS ORDERED: FURO40TA5 PO (06:32)
[2020-02-09] MEDS ORDERED: APIX5TAB PO (06:32)
[2020-02-09] MEDS ORDERED: ZINC220C2 PO (06:32)
[2020-02-09] MEDS ORDERED: ASCO500T20 PO (06:32)
[2020-02-09] MEDS ORDERED: LISI-186 PO (06:32)
[2020-02-09] MEDS ORDERED: COR3 PO (06:32)
[2020-02-09 08:24] VITALS: BP 136/88
[2020-02-09] MEDS: ASCORBIC ACID 500 MG TABLET PO SCH (08:33)
[2020-02-09] MEDS: APIXABAN 5 MG TABLET PO SCH (08:34)
[2020-02-09] MEDS: LISINOPRIL 5MG TABLET PO SCH (08:34)
[2020-02-09] MEDS: ZINC SULFATE 220 MG ( 50 ) CAPSULE PO SCH (08:34)
[2020-02-09] MEDS: CARVEDILOL 3.125 MG TABLET PO SCH (08:34)
[2020-02-09] MEDS: FAMOTIDINE 20MG TABLET PO SCH (08:35)
[2020-02-09 13:16] VITALS: BP 120/69
== END 2020-02-09 15:20 | disposition home health service (06) | DRG 52 ==
PROVIDERS: ADMIT Physical Medicine & Rehabilitation Spinal Cord Injury Medicine; ATTEND Internal Medicine
DX: G82.50 Quadriplegia, unspecified (principal); I63.9 Cerebral infarction, unspecified; J69.0 Pneumonitis due to inhalation of food and vomit; E44.1 Mild protein-calorie malnutrition; G93.40 Encephalopathy, unspecified; I42.9 Cardiomyopathy, unspecified; I47.2 Ventricular tachycardia; I50.42 Chronic combined systolic (congestive) and diastolic (congestive) heart failure; M62.82 Rhabdomyolysis; N17.9 Acute kidney failure, unspecified; R41.4 Neurologic neglect syndrome; I48.20 Chronic atrial fibrillation, unspecified; R47.01 Aphasia; D64.9 Anemia, unspecified; H53.462 Homonymous bilateral field defects, left side; H54.8 Legal blindness, as defined in USA; I08.1 Rheumatic disorders of both mitral and tricuspid valves; I11.0 Hypertensive heart disease with heart failure; I25.10 Atherosclerotic heart disease of native coronary artery without angina pectoris; I27.20 Pulmonary hypertension, unspecified; I49.3 Ventricular premature depolarization; I65.21 Occlusion and stenosis of right carotid artery; I73.9 Peripheral vascular disease, unspecified; J44.9 Chronic obstructive pulmonary disease, unspecified; D69.6 Thrombocytopenia, unspecified; E55.9 Vitamin D deficiency, unspecified; R53.81 Other malaise; R47.1 Dysarthria and anarthria; R74.8 Abnormal levels of other serum enzymes; Z87.891 Personal history of nicotine dependence; Z79.899 Other long term (current) drug therapy; Z79.01 Long term (current) use of anticoagulants; Z86.73 Personal history of transient ischemic attack (TIA), and cerebral infarction without residual deficits; Z79.82 Long term (current) use of aspirin; Z68.23 Body mass index [BMI] 23.0-23.9, adult
CPT/HCPCS: 36415; 36600; 71045; 80048; 80053; 82306; 82375; 82805; 82962; 83735; 84100; 84134; 85025; 92523; 92610; 93970; 94640; 97110; 97112; 97116; 97129; 97130; 97162; 97167; 97530; 97535